=== PATIENT | female | born 1990 | race Caucasian/White ===

== ENCOUNTER → 2016-06-17 | Outpatient (CLI) | payer BC ==
[~2016-06-17] MED LIST: AMOX875T PO; CITA20TA9 PO; CRAN400C PO; HYDR-5688 PO; LACT1CAP6 PO; MULT-506 PO; TRAM-10 PO
[2016-06-17 14:30] LABS: BASO % 0.2 %; BASO ABS # 0.02 K/uL (0-0.2); COMPLETE YES; EOS % 0.5 %; HEMATOCRIT 38.1 % (37-47); IG% 0.2 %; LYMPH % 10.7 %; LYMPH ABS # 1.01 K/uL (1.2-3.4); MEAN CELL VOLUME 89.2 fL (80-100); MEAN CORPUSCULAR HEMOGLOBIN 30.4 pg (25-34); MEAN CORPUSCULAR HGB CONC 34.1 g/dl (32-36); MEAN PLATELET VOLUME 10.5 fL (7.4-10.4); MONO % 11.6 %; NEUT % 76.8 %; PLATELET COUNT 270 K/uL (130-400); RED BLOOD COUNT 4.27 M/uL (4.2-5.4)
[2016-06-17 14:33] LABS: ALT/SGPT 12 U/L (12-78); AST/SGOT 6 U/L (15-37); BLOOD UREA NITROGEN 14 mg/dl (7-18); CALCIUM 8.5 mg/dl (8.5-10.1); CARBON DIOXIDE 29 mmol/L (21-32); CHLORIDE 106 mmol/L (98-107); CREATININE 0.72 mg/dl (0.60-1.20); GLUCOSE 75 mg/dl (70-99); POTASSIUM 3.7 mmol/L (3.5-5.1); SODIUM 141 mmol/L (136-145)
[2016-06-17 14:36] LABS: ALB/GLOB RATIO 0.9 (0.9-2); ALKALINE PHOSPHATASE 52 U/L (45-117)
[2016-06-17 14:42] LABS: URINE APPEARANCE TURBID (CLEAR); URINE BILIRUBIN NEG (NEG); URINE COLOR DK YELLOW; URINE EPITHELIAL CELL AUTO 20-30 /lpf (0-5); URINE NITRITE NEG (NEG); URINE SPECIFIC GRAVITY 1.028 (1.000-1.030); UROBILINOGEN NEG (NEG)
[2016-06-17 14:45] LABS: MANUAL MICROSCOPIC REQUIRED? NO; REVIEW REQ? NO
[2016-06-17 14:58] LABS: ESTIMATED AVERAGE GLUCOSE 97 mg/dl; HA1C FLAG Normal (Normal)
== END | disposition home or self-care (01) ==
LOC: C.LABBC 11:33
PROVIDERS: ATTEND Internal Medicine Geriatric Medicine
DX: R10.9 Unspecified abdominal pain (principal); R42 Dizziness and giddiness; Z83.3 Family history of diabetes mellitus

== ENCOUNTER 2016-06-25 15:17 | Inpatient (IN) | payer BC ==
[~2016-06-25] VITALS: Ht 157.5 cm; Wt 51.3 kg
[~2016-06-25 15:17] MED LIST changes: -AMOX875T PO; -HYDR-5688 PO; -LACT1CAP6 PO; -MULT-506 PO; -TRAM-10 PO
[2016-06-25] MEDS ORDERED: SODIUM CHLORIDE 0.9% 1000ML 1,000 ML IV STA (16:18)
[2016-06-25 16:35] LABS: URINE APPEARANCE CLEAR (CLEAR); URINE BILIRUBIN NEG (NEG); URINE COLOR YELLOW; URINE NITRITE NEG (NEG); URINE SPECIFIC GRAVITY 1.004 (1.000-1.030); UROBILINOGEN NEG (NEG); ZZUR CULT IF INDIC CLEAN CATCH NO
[2016-06-25 16:41] LABS: MANUAL MICROSCOPIC REQUIRED? NO; REVIEW REQ? NO
[2016-06-25 16:47] LABS: BASO % 0.1 %; BASO ABS # 0.02 K/uL (0-0.2); COMPLETE YES; EOS % 0.3 %; HEMATOCRIT 35.2 % (37-47); IG% 0.2 %; LYMPH % 11.5 %; LYMPH ABS # 1.63 K/uL (1.2-3.4); MEAN CELL VOLUME 88.2 fL (80-100); MEAN CORPUSCULAR HEMOGLOBIN 30.1 pg (25-34); MEAN CORPUSCULAR HGB CONC 34.1 g/dl (32-36); MEAN PLATELET VOLUME 9.2 fL (7.4-10.4); MONO % 7.6 %; NEUT % 80.3 %; PLATELET COUNT 357 K/uL (130-400); RED BLOOD COUNT 3.99 M/uL (4.2-5.4); WHITE BLOOD COUNT 14.15 K/uL (4.8-10.8)
[2016-06-25 17:00] VITALS: BP 123/79; PULSE 79; TEMP 37.8; O2SAT 97
--- NOTE | 2016-06-25 17:13 | DIAGNOSTIC IMAGING REPORT ---
ABDOMEN AND PELVIS CT WITHOUT CONTRAST CT DOSE: 253.94 mGy.cm HISTORY: Right flank pain. Fever. TECHNIQUE: Multiaxial CT images of the abdomen and pelvis were performed without contrast. COMPARISON STUDY: None. FINDINGS: The lung bases are clear. No pneumoperitoneum. No pneumatosis. No fractures within the visualized osseous structures. The proximal portion of the appendix is normal and is seen in image [id number]. However, the tip the appendix is difficult to identify but appears to extend into an area of abnormal soft tissue/inflammatory change within the right lower quadrant. Therefore, these findings are concerning for acute appendicitis. Trace pelvic free fluid. No evidence for bowel obstruction. The unenhanced liver, gallbladder, pancreas, spleen, kidneys, and adrenal glands are unremarkable. No renal stones or hydronephrosis. The bladder is unremarkable. Overall, suboptimal evaluation for bowel pathology due to the lack of intravenous and oral contrast. IMPRESSION: 1. There is an area of abnormal soft tissue which favors inflammatory change/phlegmon within the right lower quadrant. The proximal portion of the appendix is normal. The tip the appendix is difficult to identify but may extend into this area. Therefore, these findings raise the possibility of acute appendicitis. Clinical correlation recommended. 2. No renal stones or hydronephrosis. 3. Overall, suboptimal evaluation for bowel pathology due to the lack of intravenous and oral contrast. 4. Trace pelvic free fluid. Electronically signed by: Salomon Lamas M.D. 06/25/2016 5:11 PM Dictated Date/Time: 06/25/2016 5:03 PM
[2016-06-25 17:20] LABS: BUN/CREATININE RATIO 11.3 (10-20); CALCIUM 8.6 mg/dl (8.5-10.1); CREATININE 0.7 mg/dl (0.60-1.20); POTASSIUM 3.3 mmol/L (3.5-5.1)
[2016-06-25 17:23] LABS: ALB/GLOB RATIO 0.7 (0.9-2); C-REACTIVE PROTEIN 14.7 mg/dl (0-0.29)
[2016-06-25] MEDS ORDERED: PIPERACILL/TAZOBAC IV 3.375 GM in DEXTROSE 5% 100ML 100 ML IV STA (17:54)
[2016-06-25] MEDS ORDERED: METRONIDAZOLE / NSS 500 MG in PREMIXED NSS 100 ML IV STA (17:54)
[2016-06-25] MEDS ORDERED: ONDANSETRON INJ 2 MG/ML 2 ML VIAL IV PRN (18:00)
[2016-06-25] MEDS ORDERED: PROMETHAZINE HCL INJ 25 MG in SODIUM CHLORIDE 0.9% 50ML 50 ML IV PRN (18:00)
[2016-06-25] MEDS ORDERED: HYDROmorphone INJ 0.5 MG/0.5 ML SYR IV PRN (18:00)
[2016-06-25] MEDS ORDERED: HYDROmorphone INJ 1 MG/ML SYR IV PRN (18:00)
--- NOTE | 2016-06-25 18:31 | HISTORY & PHYSICAL EXAMINATION ---
DATE OF ADMISSION: 06/25/2016 CHIEF COMPLAINT: Right flank pain. HISTORY OF PRESENT ILLNESS: The patient is a 25-year-old female who has been feeling somewhat poorly for a week with what she felt was a GI virus and was seen by her PCP, but this has somewhat worsened and she has developed right flank pain, presented to the Emergency Room with CT evidence of a right lower quadrant phlegmonous area which is most likely a contained ruptured appendix. Her white blood cell count is 14,000. Her temperature is 37.7, pulse 120. Her other history includes a history of having her wisdom teeth taken out. FAMILY AND SOCIAL HISTORY: Essentially noncontributory. REVIEW OF SYSTEMS: She does have fever. She has no chills, no cough, sputum production, shortness of breath, chest pain. She does have some right-sided abdominal pain, no nausea or vomiting, no joint pain, dysuria, weakness, fatigue. No rash or extremity swelling. PHYSICAL EXAMINATION: GENERAL: She appears to be mildly flushed in her face. She is responsive. She is awake. HEENT: Her sclerae are nonicteric. Her mucous membranes are dry. NECK: Supple. LUNGS: Clear. HEART: Shows tachycardia. ABDOMEN: Soft. She does have some mild tenderness to palpation in the right abdomen and right lower quadrant area. She has no diffuse peritoneal irritation evident. She does have normal bowel sounds. EXTREMITIES: Without rash or edema. IMAGING DATA: I did review her CAT scan. ASSESSMENT AND PLAN: A 25-year-old female with what appears to be a contained rupture of the appendix with phlegmonous mass. I do feel the best treatment in this situation would be intravenous antibiotics and initial bowel rest with gradual increase in her diet. PLAN: My plan would be to treat her with antibiotics for at least 2 weeks including outpatient. Then most likely perform an interval appendectomy in 6-8 weeks depending on her progress. My concerns at the present time are significant difficulty mobilizing this area with bowel involvement and potential for bowel resection. We will have the medical team see the patient and begin her urgently on IV antibiotics and IV fluids.
[2016-06-25 18:50] VITALS: BP 121/77; TEMP 37.7; Ht 157.5 cm; Wt 51.3 kg
--- NOTE | 2016-06-25 19:03 | Medical Consult ---
Consultation Date of Consultation: Jun 25, 2016. Attending Physician: Reason for Consultation: Medications management History of Present Illness This is a 25 y/o with no significant past medical history presented to the ED complaining of abdominal since Friday. Patient states that on Friday she developed right sided abdominal pain. She went to the PCP and told that she might have viral illness. The pain has increased since Friday, which brought her to the hospital. Describes the pain as aching, located mostly at RLQ, rates it as 5/10 and non radiating. Also complains of associated nausea. Denies any other complaints. In ED CT showed a right lower quadrant phlegmonous area which is most likely a contained ruptured appendix. She had elevated WBC and temp of 37.7. Past Medical/Surgical History None Family History Cancer FH: diabetes mellitus FH: hypertension Social History Smoking Status: Never Smoker Alcohol Use: none Drug Use: none Marital Status: in relationship Housing Status: lives with significant other Occupation Status: employed Allergies Coded Allergies: No Known Allergies (Unverified , 06/25/16) Current Inpatient Medications Current Inpatient Medications Medications (Trade) Dose Ordered Sig/Leandra Route Start Time Stop Time Status Last Admin Dose Admin Lactated Ringer's 1,000 ml @ 150 mls/hr Q6H40M IV 06/25/16 18:00 07/25/16 17:59 UNV Metronidazole 500 mg/Prmx 100 ml @ 100 mls/hr Q8 IV 06/25/16 18:00 07/05/16 17:59 UNV Piperacillin Sod/ Tazobactam Sod 3.375 gm/Dextrose 115 ml @ 28.75 mls/ hr Q8 IV 06/25/16 18:00 07/05/16 17:59 UNV Metronidazole 500 mg/Prmx 100 ml @ 100 mls/hr Q8 STAT IV 06/25/16 17:54 06/25/16 18:53 Piperacillin Sod/ Tazobactam Sod/ Dextrose (Zosyn Iv/D5 100ml) 115 ml @ 230 mls/hr ONE STAT IV 06/25/16 17:54 06/25/16 18:23 Hydromorphone HCl (Dilaudid Inj) 0.5 mg Q3H PRN IV 06/25/16 18:00 07/09/16 17:59 UNV Hydromorphone HCl (Dilaudid Inj) 1 mg Q3H PRN IV 06/25/16 18:00 07/09/16 17:59 UNV Heparin Sodium (Porcine) 5000 unit 5,000 unit Q12H SQ 06/26/16 08:00 07/26/16 07:59 UNV Promethazine HCl/ Sodium Chloride (Phenergan Inj/ Nss 50ml) 51 ml @ 204 mls/hr Q6H PRN IV 06/25/16 18:00 07/25/16 17:59 UNV Ondansetron HCl (Zofran Inj) 4 mg Q6H PRN IV 06/25/16 18:00 07/25/16 17:59 UNV Ketorolac Tromethamine (Toradol Inj) 30 mg Q6H IV. 06/25/16 18:00 06/30/16 17:59 UNV Review of Systems Constitutional: + fever, No chills, No weight loss Respiratory: No cough, No shortness of breath Cardiovascular: No chest pain, No edema Abdomen: + nausea, + pain (RLQ abdominal pain), No constipation, No diarrhea, No vomiting Musculoskeletal: No muscle pain Genitourinary - Female: No dysuria Neurologic: No weakness Endocrine: No fatigue Integumentary: No rash Physical Exam Date Time Temp Pulse Resp B/P Pulse Ox O2 Delivery O2 Flow Rate FiO2 06/25/16 17:20 123 18 124/70 100 Room Air 06/25/16 15:22 37.7 127 18 136/80 98 Room Air General Appearance: WD/WN, + mild distress Head: normocephalic, atraumatic Eyes: normal inspection, PERRL, EOMI Neck: supple, trachea midline Respiratory/Chest: chest non-tender, lungs clear, normal breath sounds, no respiratory distress, no accessory muscle use Cardiovascular: regular rate, rhythm, no edema, no murmur, + tachycardia Abdomen/GI: normal bowel sounds, soft, no pulsatile mass, + tenderness (on the RLQ) Extremities/Musculoskelatal: normal inspection, no calf tenderness, no pedal edema, non-tender Neurologic/Psych: alert, normal mood/affect, oriented x 3 Skin: normal color, warm/dry, no rash Laboratory Results Last 24 Hours Test 06/25/16 16:18 06/25/16 16:35 Urine Color YELLOW Urine Appearance CLEAR Urine pH 6.0 Urine Specific Harvey 1.004 Urine Protein NEG Urine Glucose (UA) NEG Urine Ketones NEG Urine Occult Blood 2+ Urine Nitrite NEG Urine Bilirubin NEG Urine Urobilinogen NEG Urine Leukocyte Esterase NEG Urine WBC (Auto) 0 /hpf Urine RBC (Auto) 0-4 /hpf Urine Hyaline Casts (Auto) 0 /lpf Urine Epithelial Cells (Auto) 5-10 /lpf Urine Bacteria (Auto) NEG Urine Test NEG White Blood Count 14.15 K/uL Red Blood Count 3.99 M/uL Hemoglobin 12.0 g/dL Hematocrit 35.2 % Mean Corpuscular Volume 88.2 fL Mean Corpuscular Hemoglobin 30.1 pg Mean Corpuscular Hemoglobin Concent 34.1 g/dl Platelet Count 357 K/uL Mean Platelet Volume 9.2 fL Neutrophils (%) (Auto) 80.3 % Lymphocytes (%) (Auto) 11.5 % Monocytes (%) (Auto) 7.6 % Eosinophils (%) (Auto) 0.3 % Basophils (%) (Auto) 0.1 % Neutrophils # (Auto) 11.35 K/uL Lymphocytes # (Auto) 1.63 K/uL Monocytes # (Auto) 1.08 K/uL Eosinophils # (Auto) 0.04 K/uL Basophils # (Auto) 0.02 K/uL RDW Standard Deviation 40.1 fL RDW Coefficient of Variation 12.4 % Immature Granulocyte % (Auto) 0.2 % Immature Granulocyte # (Auto) 0.03 K/uL Erythrocyte Sedimentation Rate 42 mm/hr Sodium Level 139 mmol/L Potassium Level 3.3 mmol/L Chloride Level 105 mmol/L Carbon Dioxide Level 25 mmol/L Anion Gap 9.0 mmol/L Blood Urea Nitrogen 8 mg/dl Creatinine 0.70 mg/dl Est Creatinine Clear Calc Drug Dose 97.2 ml/min Estimated GFR () 139.6 Estimated GFR (Non- 120.4 BUN/Creatinine Ratio 11.3 Random Glucose 89 mg/dl Calcium Level 8.6 mg/dl Total Bilirubin 0.3 mg/dl Aspartate Amino Transf (AST/SGOT) 9 U/L Alanine Aminotransferase (ALT/SGPT) 11 U/L Alkaline Phosphatase 65 U/L C-Reactive Protein 14.70 mg/dl Total Protein 7.5 gm/dl Albumin 3.1 gm/dl Globulin 4.4 gm/dl Albumin/Globulin Ratio 0.7 Lipase 90 U/L Monoscreen NEG Assessment & Plan This is a 25 y/o female presented to the RLQ pain and found to have ruptured appendix. Patient is under Dr. Shah's service. We are consulted for the medication management. In ED patient had temp of 37.7 and elevated WBC. 1. Ruptured appendix - CT of the showed an area of abnormal soft tissue which favors inflammatory change/phlegmon within the right lower quadrant. The proximal portion of the appendix is normal. The tip the appendix is difficult to identify but may extend into this area. Therefore, these findings raise the possibility of acute appendicitis. - For now Dr. Shah plan is to treat her with antibiotics for 2 weeks and precede with appendectomy in 6-8 wks. - Patient is currently on IV Flagyl and Zosyn - Continue with IVF, LR @150mls/hr - Will keep NPO for now and advance diet slowly DVT prophylaxis - Heparin I agree with Resident assessment and plan Agree with zosyn and flagyl Febrile and tachycardic COnt IVF as well Surgery per primary team once sepsis subsides
[2016-06-25] MEDS ORDERED: PIPERACILL/TAZOBAC CONSULT ACTIVE PRN (20:15)
[2016-06-25] MEDS ORDERED: POTASSIUM CHLORIDE 10 MEQ TABCR PO STA (20:39)
[2016-06-25] MEDS: KETOROLAC TROMETHAMINE 30 MG/ML VIAL IV. SCH (20:44)
--- NOTE | 2016-06-25 21:42 | Surgery Progress Note ---
Surgery Progress Note Date of Service Jun 25, 2016. Subjective pt awake, alert in room- seems to be comfortable low grd fever- HR coming down, 300cc UO Objective Vital Signs: Date Time Temp Pulse Resp B/P Pulse Ox O2 Delivery O2 Flow Rate FiO2 06/25/16 18:50 37.7 20 121/77 Room Air 06/25/16 18:50 Room Air 06/25/16 18:33 113 20 121/77 100 Room Air 06/25/16 17:20 123 18 124/70 100 Room Air 06/25/16 17:00 37.8 79 18 123/79 97 Room Air 06/25/16 15:22 37.7 127 18 136/80 98 Room Air General Appearance: no apparent distress Abdomen: non distended Laboratory Results: Results Past 24 Hours Test 06/25/16 16:18 06/25/16 16:35 Range/Units Urine Color YELLOW Urine Appearance CLEAR CLEAR Urine pH 6.0 4.5-7.5 Urine Specific Antonito 1.004 1.000-1.030 Urine Protein NEG NEG Urine Glucose (UA) NEG NEG Urine Ketones NEG NEG Urine Occult Blood 2+ NEG Urine Nitrite NEG NEG Urine Bilirubin NEG NEG Urine Urobilinogen NEG NEG Urine Leukocyte Esterase NEG NEG Urine WBC (Auto) 0 0-5 /hpf Urine RBC (Auto) 0-4 0-4 /hpf Urine Hyaline Casts (Auto) 0 0-5 /lpf Urine Epithelial Cells (Auto) 5-10 0-5 /lpf Urine Bacteria (Auto) NEG NEG Urine Test NEG NEG White Blood Count 14.15 4.8-10.8 K/uL Red Blood Count 3.99 4.2-5.4 M/uL Hemoglobin 12.0 12.0-16.0 g/dL Hematocrit 35.2 37-47 % Mean Corpuscular Volume 88.2 80-100 fL Mean Corpuscular Hemoglobin 30.1 25-34 pg Mean Corpuscular Hemoglobin Concent 34.1 32-36 g/dl Platelet Count 357 130-400 K/uL Mean Platelet Volume 9.2 7.4-10.4 fL Neutrophils (%) (Auto) 80.3 % Lymphocytes (%) (Auto) 11.5 % Monocytes (%) (Auto) 7.6 % Eosinophils (%) (Auto) 0.3 % Basophils (%) (Auto) 0.1 % Neutrophils # (Auto) 11.35 1.4-6.5 K/uL Lymphocytes # (Auto) 1.63 1.2-3.4 K/uL Monocytes # (Auto) 1.08 0.11-0.59 K/uL Eosinophils # (Auto) 0.04 0-0.5 K/uL Basophils # (Auto) 0.02 0-0.2 K/uL RDW Standard Deviation 40.1 36.4-46.3 fL RDW Coefficient of Variation 12.4 11.5-14.5 % Immature Granulocyte % (Auto) 0.2 % Immature Granulocyte # (Auto) 0.03 0.00-0.02 K/uL Erythrocyte Sedimentation Rate 42 0-21 mm/hr Sodium Level 139 136-145 mmol/L Potassium Level 3.3 3.5-5.1 mmol/L Chloride Level 105 98-107 mmol/L Carbon Dioxide Level 25 21-32 mmol/L Anion Gap 9.0 3-11 mmol/L Blood Urea Nitrogen 8 7-18 mg/dl Creatinine 0.70 0.60-1.20 mg/dl Est Creatinine Clear Calc Drug Dose 97.2 ml/min Estimated GFR () 139.6 Estimated GFR (Non- 120.4 BUN/Creatinine Ratio 11.3 10-20 Random Glucose 89 70-99 mg/dl Calcium Level 8.6 8.5-10.1 mg/dl Total Bilirubin 0.3 0.2-1 mg/dl Aspartate Amino Transf (AST/SGOT) 9 15-37 U/L Alanine Aminotransferase (ALT/SGPT) 11 12-78 U/L Alkaline Phosphatase 65 45-117 U/L C-Reactive Protein 14.70 0-0.29 mg/dl Total Protein 7.5 6.4-8.2 gm/dl Albumin 3.1 3.4-5.0 gm/dl Globulin 4.4 2.5-4.0 gm/dl Albumin/Globulin Ratio 0.7 0.9-2 Lipase 90 73-393 U/L Monoscreen NEG NEG Assessment & Plan 06/25/16- adm with phlegmonous appendicitis- nonoperative treatment for now with planned interval appendectomy . IV fluids and atbx
[2016-06-25 23:05] VITALS: BP 105/67; PULSE 81; TEMP 36.9; O2SAT 98
--- NOTE | 2016-06-25 23:08 | EMERGENCY ROOM VISIT NOTE ---
History First contact with patient: 16:06 Chief Complaint: URINARY SYMPTOMS Stated Complaint: UTI/KIDNEY INFECT. SX/PAIN IN LWR/UPR BACK Nursing Triage Summary: back pain since friday night, fever, chills, night sweats, increased urinary frequency History of Present Illness The patient is a 25 year old female who presents to the Emergency Room with complaints of lower back pain, right flank pain, fevers, chills and nausea. The patient reports that she developed weakness, nausea, fevers and decreased appetite over a week ago. She was seen by her PCP on 06/17/16, and diagnosed with a viral infection. She does report having lab work performed. The patient reports that she never really improved last week. She did have some mild right-sided abdominal discomfort at that time. At that time, she denied any urinary symptoms or diarrhea. Patient then started to report increased urinary frequency approximately 48 hours ago with worsening fevers and chills. The patient reports that her right flank pain is intermittent in nature. She denies any prior history of kidney stones, ovarian cysts or abdominal surgery. The patient is currently menstruating, but reports that the pain is different than her usual dysmenorrhea. The patient denies . She currently rates her discomfort a 6 out of 10. Review of Systems HEENT: Denies dizziness, visual problems, hearing loss, tinnitus. Denies difficulty swallowing or oral lesions. PULMONARY: Denies cough, shortness of breath, sputum production or hemoptysis. CARDIOVASCULAR: Denies chest pain, palpitations, dyspnea on exertion, orthopnea or peripheral edema. GASTROINTESTINAL: Denies diarrhea or constipation, otherwise see history of present illness. GENITOURINARY: Denies dysuria, but does admit to increased frequency and urgency. NEUROLOGIC: Denies history of epilepsy, CVA, TIA or chronic headaches. MUSCULOSKELETAL: Denies history of joint tenderness/swelling. SKIN: Denies rashes or lesions. PSYCHIATRIC: Denies history of depression or mental illness. ENDOCRINE: Denies history of diabetes or thyroid disorders. Past Medical/Surgical History Medical Problems: (1) Appendicitis (2) Raynaud disease Family History Cancer FH: diabetes mellitus FH: hypertension Social History Smoking Status: Never Smoker Alcohol Use: none Marital Status: single, in relationship Housing Status: lives with significant other Occupation Status: employed Current/Historical Medications Scheduled Citalopram Hydrobromide (Celexa), 20 MG PO DAILY Allergies Coded Allergies: No Known Allergies (Unverified , 06/25/16) Physical Exam Vital Signs Date Time Temp Pulse Resp B/P Pulse Ox O2 Delivery O2 Flow Rate FiO2 06/25/16 17:20 123 18 124/70 100 Room Air 06/25/16 17:00 37.8 79 18 123/79 97 Room Air 06/25/16 15:22 37.7 127 18 136/80 98 Room Air Physical Exam CONSTITUTIONAL: Healthy and well nourished. Alert and oriented X 3 with positive affect. Patient appears in moderate discomfort from pain. HEENT: Normocephalic, atraumatic. Pupils equal, round and reactive. There is no icterus or conjunctival injection/pallor. OROPHARYNX: Mucous membranes are dry. No tonsillar hypertrophy or exudates. NECK: Full active range of motion without discomfort. No nuchal rigidity. LYMPHATICS: No adenopathy noted. RESPIRATORY: Clear to auscultation bilaterally with no wheezing, crackles, rhonchi or stridor. CARDIOVASCULAR: Regular rate and rhythm with no murmurs, rubs or gallops. GASTROINTESTINAL: Bowel sounds present in all quadrants. Patient has minimal right lower quadrant tenderness to palpation. Negative Rovsing sign. Negative heel tap. Negative psoas/obturator sign. Negative CVA tenderness. No abdominal rigidity, guarding or rebound. MUSCULOSKELETAL: Full range of motion of all joints without discomfort. INTEGUMENTARY: No rash or other significant dermatologic conditions noted. HEMATOLOGIC: No ecchymosis or petechiae noted. NEUROLOGIC: Cranial nerves II-XII grossly intact. No focal neurologic deficits noted. Medical Decision & Procedures ER Provider Diagnostic Interpretation: Noncontrast CT of the abdomen and pelvis shows a possible phlegmon process within the right lower quadrant. No renal or ureteral calculi are noted. Radiologist report is as follows: ABDOMEN AND PELVIS CT WITHOUT CONTRAST CT DOSE: 253.94 mGy.cm HISTORY: Right flank pain. Fever. TECHNIQUE: Multiaxial CT images of the abdomen and pelvis were performed without contrast. COMPARISON STUDY: None. FINDINGS: The lung bases are clear. No pneumoperitoneum. No pneumatosis. No fractures within the visualized osseous structures. The proximal portion of the appendix is normal and is seen in image [id number]. However, the tip the appendix is difficult to identify but appears to extend into an area of abnormal soft tissue/inflammatory change within the right lower quadrant. Therefore, these findings are concerning for acute appendicitis. Trace pelvic free fluid. No evidence for bowel obstruction. The unenhanced liver, gallbladder, pancreas, spleen, kidneys, and adrenal glands are unremarkable. No renal stones or hydronephrosis. The bladder is unremarkable. Overall, suboptimal evaluation for bowel pathology due to the lack of intravenous and oral contrast. IMPRESSION: 1. There is an area of abnormal soft tissue which favors inflammatory change/phlegmon within the right lower quadrant. The proximal portion of the appendix is normal. The tip the appendix is difficult to identify but may extend into this area. Therefore, these findings raise the possibility of acute appendicitis. Clinical correlation recommended. 2. No renal stones or hydronephrosis. 3. Overall, suboptimal evaluation for bowel pathology due to the lack of intravenous and oral contrast. 4. Trace pelvic free fluid. Laboratory Results 06/25/16 16:35 Red Blood Count 3.99, Mean Corpuscular Volume 88.2, Mean Corpuscular Hemoglobin 30.1, Mean Corpuscular Hemoglobin Concent 34.1, Mean Platelet Volume 9.2, Neutrophils (%) (Auto) 80.3, Lymphocytes (%) (Auto) 11.5, Monocytes (%) (Auto) 7.6, Eosinophils (%) (Auto) 0.3, Basophils (%) (Auto) 0.1, Neutrophils # (Auto) 11.35, Lymphocytes # (Auto) 1.63, Monocytes # (Auto) 1.08, Eosinophils # (Auto) 0.04, Basophils # (Auto) 0.02 06/25/16 16:35 Test 06/25/16 16:18 06/25/16 16:35 Urine Color YELLOW Urine Appearance CLEAR (CLEAR) Urine pH 6.0 (4.5-7.5) Urine Specific [place] 1.004 (1.000-1.030) Urine Protein NEG (NEG) Urine Glucose (UA) NEG (NEG) Urine Ketones NEG (NEG) Urine Occult Blood 2+ (NEG) Urine Nitrite NEG (NEG) Urine Bilirubin NEG (NEG) Urine Urobilinogen NEG (NEG) Urine Leukocyte Esterase NEG (NEG) Urine WBC (Auto) 0 /hpf (0-5) Urine RBC (Auto) 0-4 /hpf (0-4) Urine Hyaline Casts (Auto) 0 /lpf (0-5) Urine Epithelial Cells (Auto) 5-10 /lpf (0-5) Urine Bacteria (Auto) NEG (NEG) Urine Test NEG (NEG) White Blood Count 14.15 K/uL (4.8-10.8) Red Blood Count 3.99 M/uL (4.2-5.4) Hemoglobin 12.0 g/dL (12.0-16.0) Hematocrit 35.2 % (37-47) Mean Corpuscular Volume 88.2 fL (80-100) Mean Corpuscular Hemoglobin 30.1 pg (25-34) Mean Corpuscular Hemoglobin Concent 34.1 g/dl (32-36) Platelet Count 357 K/uL (130-400) Mean Platelet Volume 9.2 fL (7.4-10.4) Neutrophils (%) (Auto) 80.3 % Lymphocytes (%) (Auto) 11.5 % Monocytes (%) (Auto) 7.6 % Eosinophils (%) (Auto) 0.3 % Basophils (%) (Auto) 0.1 % Neutrophils # (Auto) 11.35 K/uL (1.4-6.5) Lymphocytes # (Auto) 1.63 K/uL (1.2-3.4) Monocytes # (Auto) 1.08 K/uL (0.11-0.59) Eosinophils # (Auto) 0.04 K/uL (0-0.5) Basophils # (Auto) 0.02 K/uL (0-0.2) RDW Standard Deviation 40.1 fL (36.4-46.3) RDW Coefficient of Variation 12.4 % (11.5-14.5) Immature Granulocyte % (Auto) 0.2 % Immature Granulocyte # (Auto) 0.03 K/uL (0.00-0.02) Erythrocyte Sedimentation Rate 42 mm/hr (0-21) Anion Gap 9.0 mmol/L (3-11) Est Creatinine Clear Calc Drug Dose 97.2 ml/min Estimated GFR () 139.6 Estimated GFR (Non- 120.4 BUN/Creatinine Ratio 11.3 (10-20) Calcium Level 8.6 mg/dl (8.5-10.1) Total Bilirubin 0.3 mg/dl (0.2-1) Aspartate Amino Transf (AST/SGOT) 9 U/L (15-37) Alanine Aminotransferase (ALT/SGPT) 11 U/L (12-78) Alkaline Phosphatase 65 U/L (45-117) C-Reactive Protein 14.70 mg/dl (0-0.29) Total Protein 7.5 gm/dl (6.4-8.2) Albumin 3.1 gm/dl (3.4-5.0) Globulin 4.4 gm/dl (2.5-4.0) Albumin/Globulin Ratio 0.7 (0.9-2) Lipase 90 U/L (73-393) Monoscreen NEG (NEG) The above labs were reviewed. Patient has a leukocytosis with left shift and bandemia. Urinalysis shows hematuria, likely secondary to menses. There is no signs of infection in the urine. Real screen and urine are negative. C-reactive protein and sedimentation rate are elevated as well. LFTs and lipase are normal. Medications Administered Medications (Trade) Dose Ordered Sig/Leandra Route Start Time Stop Time Status Last Admin Dose Admin Sodium Chloride 1,000 ml @ 999 mls/hr Q1H1M STAT IV 06/25/16 16:18 06/25/16 17:18 DC 06/25/16 16:39 999 MLS/HR Metronidazole 500 mg/Prmx 100 ml @ 100 mls/hr Q8 STAT IV 06/25/16 17:54 06/25/16 18:53 DC 06/25/16 19:05 100 MLS/HR Piperacillin Sod/ Tazobactam Sod/ Dextrose (Zosyn Iv/D5 100ml) 115 ml @ 230 mls/hr ONE STAT IV 06/25/16 17:54 06/25/16 18:23 DC 06/25/16 18:32 230 MLS/HR Procedure 1. IV hydration: The patient received a liter normal saline bolus 2. IV medications: ED Course Patient history and physical exam were performed. Nurse's notes were reviewed. The patient is febrile with a temperature of 37.7C, and heart rate of 127. She is normotensive. I also reviewed portion of prior medical records, including review of labs from 06/17/16. Urine cultures were ordered, however more than 3 bacteria were isolated, likely secondary to contamination. IV access was established, and labs were drawn. The patient was hydrated with a liter normal saline. She initially refused any analgesics or antiemetics. Review of labs shows a leukocytosis with elevated sedimentation rate and CRP. Urinalysis shows hematuria without evidence for infection. LFTs and lipase were normal. CRP and sedimentation rate are elevated, also suggestive of infection. was negative. Noncontrast CT of the abdomen and pelvis showed a phlegmon formation within the right lower quadrant, concerning for appendicitis. There was no evidence for ureteral calculi or perinephritic stranding. The case was further discussed with Dr. Hernández, ED attending physician, who suggested consultation with general surgery. The case was then further discussed with Dr. Shah who came to the emergency department to evaluate the patient. He suspects that the patient perforated the appendix which is currently walled off. Plan is for admission and IV antibiotics with hopefully interval appendectomy in 6-8 weeks pending progress. Please see his dictation for further treatment and final disposition. Medical Decision Workup today is consistent with an perforated appendicitis as currently walled off with a phlegmon formation. Her urinalysis is not suggestive of UTI, and she also has no CVA tenderness to suggest pyelonephritis. I also do not suspect ovarian cyst or torsion. She denies any chest or pulmonary symptoms to suggest cardiopulmonary etiology such as myocardial infarction, pulmonary embolus, pneumonia or pneumothorax. Laboratory studies also are not suggestive of pancreatitis, hepatitis or cholecystitis. The patient's physical exam is rather benign without classic findings that one would expect with acute appendicitis. Impression Primary Impression: Appendicitis with perforation Departure Information Referrals Lencho Cornell D.O.Int.Med. (PCP) Patient Instructions My [facility]
[2016-06-25] MEDS: LACTATED RINGER'S 1000ML 1,000 ML IV SCH (23:59)
[2016-06-26] MEDS: PIPERACILL/TAZOBAC IV 3.375 GM in DEXTROSE 5% 100ML 100 ML IV SCH ×3 (00:16→15:49)
[2016-06-26] MEDS: KETOROLAC TROMETHAMINE 30 MG/ML VIAL IV. SCH ×4 (03:36→20:55)
[2016-06-26] MEDS: LACTATED RINGER'S 1000ML 1,000 ML IV SCH ×3 (03:37→18:02)
[2016-06-26] MEDS: METRONIDAZOLE / NSS 500 MG in PREMIXED NSS 100 ML IV SCH ×3 (03:52→20:54)
[2016-06-26 05:23] LABS: HEMATOCRIT 30.1 % (37-47); MEAN CELL VOLUME 87.2 fL (80-100); MEAN CORPUSCULAR HEMOGLOBIN 29.6 pg (25-34); MEAN CORPUSCULAR HGB CONC 33.9 g/dl (32-36); MEAN PLATELET VOLUME 8.8 fL (7.4-10.4); PLATELET COUNT 293 K/uL (130-400); RED BLOOD COUNT 3.45 M/uL (4.2-5.4); WHITE BLOOD COUNT 12.06 K/uL (4.8-10.8)
--- NOTE | 2016-06-26 05:47 | Surgery Progress Note ---
Surgery Progress Note Date of Service Jun 26, 2016. Subjective No nausea, No vomiting awake, alert- no pain med except toradol, feels better fair urine output Objective Vital Signs: Date Time Temp Pulse Resp B/P Pulse Ox O2 Delivery O2 Flow Rate FiO2 06/25/16 23:20 Room Air 06/25/16 23:05 36.9 81 18 105/67 98 Room Air 06/25/16 18:50 37.7 20 121/77 Room Air 06/25/16 18:50 Room Air 06/25/16 18:33 113 20 121/77 100 Room Air 06/25/16 17:20 123 18 124/70 100 Room Air 06/25/16 17:00 37.8 79 18 123/79 97 Room Air 06/25/16 15:22 37.7 127 18 136/80 98 Room Air General Appearance: no apparent distress Respiratory/Chest: no respiratory distress Abdomen: soft (minimal tenderness, isolated to Rt side) Laboratory Results: Results Past 24 Hours Test 06/25/16 16:18 06/25/16 16:35 06/26/16 05:09 Range/Units Urine Color YELLOW Urine Appearance CLEAR CLEAR Urine pH 6.0 4.5-7.5 Urine Specific [place] 1.004 1.000-1.030 Urine Protein NEG NEG Urine Glucose (UA) NEG NEG Urine Ketones NEG NEG Urine Occult Blood 2+ NEG Urine Nitrite NEG NEG Urine Bilirubin NEG NEG Urine Urobilinogen NEG NEG Urine Leukocyte Esterase NEG NEG Urine WBC (Auto) 0 0-5 /hpf Urine RBC (Auto) 0-4 0-4 /hpf Urine Hyaline Casts (Auto) 0 0-5 /lpf Urine Epithelial Cells (Auto) 5-10 0-5 /lpf Urine Bacteria (Auto) NEG NEG Urine Test NEG NEG White Blood Count 14.15 12.06 4.8-10.8 K/uL Red Blood Count 3.99 3.45 4.2-5.4 M/uL Hemoglobin 12.0 10.2 12.0-16.0 g/dL Hematocrit 35.2 30.1 37-47 % Mean Corpuscular Volume 88.2 87.2 80-100 fL Mean Corpuscular Hemoglobin 30.1 29.6 25-34 pg Mean Corpuscular Hemoglobin Concent 34.1 33.9 32-36 g/dl Platelet Count 357 293 130-400 K/uL Mean Platelet Volume 9.2 8.8 7.4-10.4 fL Neutrophils (%) (Auto) 80.3 % Lymphocytes (%) (Auto) 11.5 % Monocytes (%) (Auto) 7.6 % Eosinophils (%) (Auto) 0.3 % Basophils (%) (Auto) 0.1 % Neutrophils # (Auto) 11.35 1.4-6.5 K/uL Lymphocytes # (Auto) 1.63 1.2-3.4 K/uL Monocytes # (Auto) 1.08 0.11-0.59 K/uL Eosinophils # (Auto) 0.04 0-0.5 K/uL Basophils # (Auto) 0.02 0-0.2 K/uL RDW Standard Deviation 40.1 40.4 36.4-46.3 fL RDW Coefficient of Variation 12.4 12.5 11.5-14.5 % Immature Granulocyte % (Auto) 0.2 % Immature Granulocyte # (Auto) 0.03 0.00-0.02 K/uL Erythrocyte Sedimentation Rate 42 0-21 mm/hr Sodium Level 139 136-145 mmol/L Potassium Level 3.3 3.5-5.1 mmol/L Chloride Level 105 98-107 mmol/L Carbon Dioxide Level 25 21-32 mmol/L Anion Gap 9.0 3-11 mmol/L Blood Urea Nitrogen 8 7-18 mg/dl Creatinine 0.70 0.60-1.20 mg/dl Est Creatinine Clear Calc Drug Dose 97.2 ml/min Estimated GFR () 139.6 Estimated GFR (Non- 120.4 BUN/Creatinine Ratio 11.3 10-20 Random Glucose 89 70-99 mg/dl Calcium Level 8.6 8.5-10.1 mg/dl Total Bilirubin 0.3 0.2-1 mg/dl Aspartate Amino Transf (AST/SGOT) 9 15-37 U/L Alanine Aminotransferase (ALT/SGPT) 11 12-78 U/L Alkaline Phosphatase 65 45-117 U/L C-Reactive Protein 14.70 0-0.29 mg/dl Total Protein 7.5 6.4-8.2 gm/dl Albumin 3.1 3.4-5.0 gm/dl Globulin 4.4 2.5-4.0 gm/dl Albumin/Globulin Ratio 0.7 0.9-2 Lipase 90 73-393 U/L Monoscreen NEG NEG Assessment & Plan 06/26/16- vital signs improved- afeb, HR normal- cont IV fluids, atbx will give clear liquids, ambulate, check labs 06/25/16- adm with phlegmonous appendicitis- nonoperative treatment for now with planned interval appendectomy . IV fluids and atbx 06/25/16- adm with phlegmonous appendicitis- nonoperative treatment for now with planned interval appendectomy . IV fluids and atbx
[2016-06-26 05:59] LABS: BLOOD UREA NITROGEN 6 mg/dl (7-18); BUN/CREATININE RATIO 11.4 (10-20); CALCIUM 7.9 mg/dl (8.5-10.1); CARBON DIOXIDE 23 mmol/L (21-32); CHLORIDE 111 mmol/L (98-107); CREATININE 0.51 mg/dl (0.60-1.20); GLUCOSE 87 mg/dl (70-99); PHOSPHORUS 2.5 mg/dl (2.5-4.9); POTASSIUM 3.8 mmol/L (3.5-5.1); SODIUM 144 mmol/L (136-145)
[2016-06-26 08:09] VITALS: BP 100/63; PULSE 91; TEMP 36.4; O2SAT 98
[2016-06-26] MEDS: HEPARIN SOD 5000 UNIT/0.5 ML CARP SQ SCH ×2 (08:35→20:55)
--- NOTE | 2016-06-26 14:51 | Progress Note ---
Subjective Date of Service: Jun 26, 2016. (Rebeca Bond PA-C) Subjective Pt evaluation today including: conversation w/ patient, physical exam, chart review, lab review, review of studies, review of inpatient medication list Patient seen and evaluated. Afebrile overnight. She is reporting adequate control of her pain at this time States that she feels at her baseline. Does report poor sleep overnight. Patient is getting ready to ambulate in the hallways. She denies fever/chills, abdominal pain, nausea/vomiting, diarrhea/constipation (Rebeca Bond PA-C) Problem List Medical Problems: (1) Appendicitis with perforation Status: Acute (Rebeca Bond PA-C) Review of Systems Constitutional: No chills, No fever Respiratory: No shortness of breath Cardiac: No chest pain Abdomen: No constipation, No diarrhea, No nausea, No pain, No vomiting Musculoskeletal: No calf pain, No swelling Female : No dysuria Heme: No abnormal bleeding/bruising Skin: No rash (Rebeca Bond PA-C) Medications Current Inpatient Medications Medications (Trade) Dose Ordered Sig/Leandra Route Start Time Stop Time Status Last Admin Dose Admin Lactated Ringer's 1,000 ml @ 125 mls/hr Q8H IV 06/25/16 20:00 07/25/16 19:59 06/26/16 10:50 125 MLS/HR Metronidazole 500 mg/Prmx 100 ml @ 100 mls/hr Q8H IV 06/26/16 04:00 07/05/16 19:59 06/26/16 12:25 100 MLS/HR Piperacillin Sod/ Tazobactam Sod/ Dextrose (Zosyn Iv/D5 100ml) 115 ml @ 28.75 mls/ hr Q8H IV 06/26/16 00:00 07/06/16 00:00 06/26/16 08:31 28.75 MLS/HR Hydromorphone HCl (Dilaudid Inj) 0.5 mg Q3H PRN IV 06/25/16 18:00 07/09/16 17:59 Hydromorphone HCl (Dilaudid Inj) 1 mg Q3H PRN IV 06/25/16 18:00 07/09/16 17:59 Heparin Sodium (Porcine) 5000 unit 5,000 unit Q12H SQ 06/26/16 08:00 07/26/16 07:59 Promethazine HCl/ Sodium Chloride (Phenergan Inj/ Nss 50ml) 51 ml @ 204 mls/hr Q6H PRN IV 06/25/16 18:00 07/25/16 17:59 Ondansetron HCl (Zofran Inj) 4 mg Q6H PRN IV 06/25/16 18:00 07/25/16 17:59 Ketorolac Tromethamine (Toradol Inj) 30 mg Q6H IV. 06/25/16 21:00 06/27/16 15:01 06/26/16 14:27 30 MG Piperacillin Sod/ Tazobactam Sod (Consult) 1 ea UD PRN N/A 06/25/16 20:15 07/25/16 20:14 Citalopram Hydrobromide (celeXA TAB) 20 mg HS PO 06/26/16 21:00 07/26/16 20:59 (Rebeca Bond PA-C) Objective Vital Signs Date Time Temp Pulse Resp B/P Pulse Ox O2 Delivery O2 Flow Rate FiO2 06/26/16 08:09 36.4 91 16 100/63 98 Room Air 06/26/16 08:00 Room Air 06/25/16 23:20 Room Air 06/25/16 23:05 36.9 81 18 105/67 98 Room Air 06/25/16 18:50 37.7 20 121/77 Room Air 06/25/16 18:50 Room Air 06/25/16 18:33 113 20 121/77 100 Room Air 06/25/16 17:20 123 18 124/70 100 Room Air 06/25/16 17:00 37.8 79 18 123/79 97 Room Air 06/25/16 15:22 37.7 127 18 136/80 98 Room Air (Rebeca Bond PA-C) Physical Exam General Appearance: WD/WN, no apparent distress Eyes: sclerae normal ENT: hearing grossly normal Neck: supple, no JVD, trachea midline Respiratory/Chest: lungs clear, normal breath sounds, no respiratory distress, no accessory muscle use Cardiovascular: regular rate, rhythm, no gallop, no murmur Abdomen: normal bowel sounds, non tender, soft Extremities: non-tender, no pedal edema Neurologic/Psychiatric: alert, oriented x 3 Skin: normal color, warm/dry (Rebeca Bond, MALIKA) Laboratory Results Last 24 Hours Test 06/25/16 16:18 06/25/16 16:35 06/26/16 05:09 Urine Color YELLOW Urine Appearance CLEAR Urine pH 6.0 Urine Specific [place] 1.004 Urine Protein NEG Urine Glucose (UA) NEG Urine Ketones NEG Urine Occult Blood 2+ Urine Nitrite NEG Urine Bilirubin NEG Urine Urobilinogen NEG Urine Leukocyte Esterase NEG Urine WBC (Auto) 0 /hpf Urine RBC (Auto) 0-4 /hpf Urine Hyaline Casts (Auto) 0 /lpf Urine Epithelial Cells (Auto) 5-10 /lpf Urine Bacteria (Auto) NEG Urine Test NEG White Blood Count 14.15 K/uL 12.06 K/uL Red Blood Count 3.99 M/uL 3.45 M/uL Hemoglobin 12.0 g/dL 10.2 g/dL Hematocrit 35.2 % 30.1 % Mean Corpuscular Volume 88.2 fL 87.2 fL Mean Corpuscular Hemoglobin 30.1 pg 29.6 pg Mean Corpuscular Hemoglobin Concent 34.1 g/dl 33.9 g/dl Platelet Count 357 K/uL 293 K/uL Mean Platelet Volume 9.2 fL 8.8 fL Neutrophils (%) (Auto) 80.3 % Lymphocytes (%) (Auto) 11.5 % Monocytes (%) (Auto) 7.6 % Eosinophils (%) (Auto) 0.3 % Basophils (%) (Auto) 0.1 % Neutrophils # (Auto) 11.35 K/uL Lymphocytes # (Auto) 1.63 K/uL Monocytes # (Auto) 1.08 K/uL Eosinophils # (Auto) 0.04 K/uL Basophils # (Auto) 0.02 K/uL RDW Standard Deviation 40.1 fL 40.4 fL RDW Coefficient of Variation 12.4 % 12.5 % Immature Granulocyte % (Auto) 0.2 % Immature Granulocyte # (Auto) 0.03 K/uL Erythrocyte Sedimentation Rate 42 mm/hr Sodium Level 139 mmol/L 144 mmol/L Potassium Level 3.3 mmol/L 3.8 mmol/L Chloride Level 105 mmol/L 111 mmol/L Carbon Dioxide Level 25 mmol/L 23 mmol/L Anion Gap 9.0 mmol/L 10.0 mmol/L Blood Urea Nitrogen 8 mg/dl 6 mg/dl Creatinine 0.70 mg/dl 0.51 mg/dl Est Creatinine Clear Calc Drug Dose 97.2 ml/min 133.4 ml/min Estimated GFR () 139.6 > 150.0 Estimated GFR (Non- 120.4 133.6 BUN/Creatinine Ratio 11.3 11.4 Random Glucose 89 mg/dl 87 mg/dl Calcium Level 8.6 mg/dl 7.9 mg/dl Total Bilirubin 0.3 mg/dl Aspartate Amino Transf (AST/SGOT) 9 U/L Alanine Aminotransferase (ALT/SGPT) 11 U/L Alkaline Phosphatase 65 U/L C-Reactive Protein 14.70 mg/dl Total Protein 7.5 gm/dl Albumin 3.1 gm/dl Globulin 4.4 gm/dl Albumin/Globulin Ratio 0.7 Lipase 90 U/L Monoscreen NEG Phosphorus Level 2.5 mg/dl Magnesium Level 2.0 mg/dl (Rebeca Bond PA-C) Assessment and Plan Ms. Lee is a 25 y/o female with PMHx Anxiety/Depression who presents with RLQ abdominal pain. CT significant for what appears to be a contained ruptured appendix. Sepsis 2/2 Acute Appendicitis with Contained Perforation: - Dr. Shah as primary service -- Plan to treat with 2 weeks antibiotics with appendectomy in 6-8 weeks - Advance diet as tolerated - Lactated Ringer's 125 mL/hr - Flagyl 500 mg IV Q8H and Zosyn per pharmacy dosing - Toradol 30 mg IV Q6H and Dilaudid 0.5-1 mg Q3H PRN Hypokalemia: RESOLVED - Trend with BMP Anxiety/Depression: - Celexa 20 mg HS DVT Prophylaxis: - Ambulation - Heparin 5000 units BID Code Status: FULL RESUSCITATION Disposition: Return home when medically stable per primary Continued [facility] stay due to: multiple IV medications needed Discharge planning: home (Rebeca Bond PA-C) I personally evaluated this patient and performed a physical exam. I reviewed the orders. I read this note completed by Rebeca Bond PA-C and agree with the contents in entirety. I agree with the antibiotic choices. I could argue that if patient is without fever or signs of peritonitis over the next 36-48 hours that she could be discharged on oral Augmentin and Flagyl or oral Avelox. Then have her watch closely for fever, N/V, and abdominal pain until surgery date. (Dexter Cuenca, DO)
[2016-06-26 15:15] VITALS: BP 106/71; PULSE 90; TEMP 36.7; O2SAT 99
[2016-06-26] MEDS: CITALOPRAM 20 MG TAB PO SCH (20:56)
[2016-06-26 23:00] VITALS: BP 104/57; PULSE 84; TEMP 37; O2SAT 97
[2016-06-27] MEDS: PIPERACILL/TAZOBAC IV 3.375 GM in DEXTROSE 5% 100ML 100 ML IV SCH ×3 (00:17→15:33)
[2016-06-27] MEDS: KETOROLAC TROMETHAMINE 30 MG/ML VIAL IV. SCH ×3 (03:06→15:29)
[2016-06-27] MEDS: LACTATED RINGER'S 1000ML 1,000 ML IV SCH ×4 (03:07→18:48)
[2016-06-27] MEDS: METRONIDAZOLE / NSS 500 MG in PREMIXED NSS 100 ML IV SCH ×2 (04:29→12:05)
--- NOTE | 2016-06-27 06:48 | Surgery Progress Note ---
Surgery Progress Note Date of Service Jun 27, 2016. Subjective afeb, awake, alert- feeling better- walking in hallway hungry Objective Vital Signs: Date Time Temp Pulse Resp B/P Pulse Ox O2 Delivery O2 Flow Rate FiO2 06/27/16 00:25 Room Air 06/26/16 23:00 37.0 84 16 104/57 97 Room Air 06/26/16 15:50 Room Air 06/26/16 15:15 36.7 90 18 106/71 99 Room Air 06/26/16 08:09 36.4 91 16 100/63 98 Room Air 06/26/16 08:00 Room Air General Appearance: no apparent distress Respiratory/Chest: no respiratory distress Cardiovascular: regular rate, rhythm Abdomen: normal bowel sounds (minimal tenderness), soft Laboratory Results: Results Past 24 Hours Test 06/27/16 04:44 Range/Units Assessment & Plan 06/27/16- overall stable on IV atbx and clear liquids- abd is soft with normal bowel sounds- will adv to full liquids- cont IV atbx at least 2 more days , then to po Augmentin at some point 06/26/16- vital signs improved- afeb, HR normal- cont IV fluids, atbx will give clear liquids, ambulate, check labs 06/25/16- adm with phlegmonous appendicitis- nonoperative treatment for now with planned interval appendectomy . IV fluids and atbx 06/26/16- vital signs improved- afeb, HR normal- cont IV fluids, atbx will give clear liquids, ambulate, check labs 06/25/16- adm with phlegmonous appendicitis- nonoperative treatment for now with planned interval appendectomy . IV fluids and atbx
[2016-06-27 07:14] VITALS: BP 98/64; PULSE 83; TEMP 36.7; O2SAT 98
[2016-06-27] MEDS: HEPARIN SOD 5000 UNIT/0.5 ML CARP SQ SCH ×2 (07:21→19:32)
[2016-06-27 07:27] LABS: HEMATOCRIT 30.4 % (37-47); MEAN CELL VOLUME 89.1 fL (80-100); MEAN CORPUSCULAR HEMOGLOBIN 29.3 pg (25-34); MEAN CORPUSCULAR HGB CONC 32.9 g/dl (32-36); MEAN PLATELET VOLUME 9.6 fL (7.4-10.4); PLATELET COUNT 327 K/uL (130-400); RED BLOOD COUNT 3.41 M/uL (4.2-5.4); WHITE BLOOD COUNT 9.43 K/uL (4.8-10.8)
[2016-06-27 08:03] LABS: BLOOD UREA NITROGEN 3 mg/dl (7-18); BUN/CREATININE RATIO 6.6 (10-20); CALCIUM 7.9 mg/dl (8.5-10.1); CARBON DIOXIDE 27 mmol/L (21-32); CHLORIDE 110 mmol/L (98-107); CREATININE 0.51 mg/dl (0.60-1.20); GLUCOSE 91 mg/dl (70-99); MAGNESIUM 1.9 mg/dl (1.8-2.4); POTASSIUM 3.8 mmol/L (3.5-5.1); SODIUM 145 mmol/L (136-145)
[2016-06-27] MEDS ORDERED: CITALOPRAM 20 MG TAB PO SCH (09:00)
--- NOTE | 2016-06-27 10:15 | Progress Note ---
Subjective Date of Service: Jun 27, 2016. (Rebeca Bond PA-C) Subjective Pt evaluation today including: conversation w/ patient, physical exam, chart review, lab review, review of inpatient medication list Patient seen and evaluated. No acute events overnight. Patient denies abdominal pain. She is tolerating a clear liquid diet. She denies fever/chills. She has been afebrile greater than 24 hours. Patient verbalizes no new complaints. (Rebeca Bond PA-C) Problem List Medical Problems: (1) Appendicitis with perforation Status: Acute (Rebeca Bond PA-C) Review of Systems Constitutional: No chills, No fever Respiratory: No cough, No shortness of breath Cardiac: No chest pain Abdomen: No constipation, No diarrhea, No nausea, No pain, No vomiting Musculoskeletal: No calf pain, No swelling Female : No dysuria Heme: No abnormal bleeding/bruising Skin: No new/changing skin lesions, No rash (Rebeca Bond PA-C) Medications Current Inpatient Medications Medications (Trade) Dose Ordered Sig/Leandra Route Start Time Stop Time Status Last Admin Dose Admin Lactated Ringer's 1,000 ml @ 75 mls/hr [id number] IV 06/25/16 20:00 07/27/16 19:59 06/27/16 07:19 75 MLS/HR Metronidazole 500 mg/Prmx 100 ml @ 100 mls/hr Q8H IV 06/26/16 04:00 07/05/16 19:59 06/27/16 04:29 100 MLS/HR Piperacillin Sod/ Tazobactam Sod/ Dextrose (Zosyn Iv/D5 100ml) 115 ml @ 28.75 mls/ hr Q8H IV 06/26/16 00:00 07/06/16 00:00 06/27/16 07:19 28.75 MLS/HR Hydromorphone HCl (Dilaudid Inj) 0.5 mg Q3H PRN IV 06/25/16 18:00 07/09/16 17:59 Hydromorphone HCl (Dilaudid Inj) 1 mg Q3H PRN IV 06/25/16 18:00 07/09/16 17:59 Heparin Sodium (Porcine) 5000 unit 5,000 unit Q12H SQ 06/26/16 08:00 07/26/16 07:59 Promethazine HCl/ Sodium Chloride (Phenergan Inj/ Nss 50ml) 51 ml @ 204 mls/hr Q6H PRN IV 06/25/16 18:00 07/25/16 17:59 Ondansetron HCl (Zofran Inj) 4 mg Q6H PRN IV 06/25/16 18:00 07/25/16 17:59 Ketorolac Tromethamine (Toradol Inj) 30 mg Q6H IV. 06/25/16 21:00 06/27/16 15:01 06/27/16 09:09 30 MG Piperacillin Sod/ Tazobactam Sod (Consult) 1 ea UD PRN N/A 06/25/16 20:15 07/25/16 20:14 Citalopram Hydrobromide (celeXA TAB) 20 mg HS PO 06/26/16 21:00 07/26/16 20:59 06/26/16 20:56 20 MG (Rebeca Bond PA-C) Objective Vital Signs Date Time Temp Pulse Resp B/P Pulse Ox O2 Delivery O2 Flow Rate FiO2 06/27/16 07:14 36.7 83 16 98/64 98 Room Air 06/27/16 07:10 Room Air 06/27/16 00:25 Room Air 06/26/16 23:00 37.0 84 16 104/57 97 Room Air 06/26/16 15:50 Room Air 06/26/16 15:15 36.7 90 18 106/71 99 Room Air (Rebeca Bond PA-C) Physical Exam General Appearance: WD/WN, no apparent distress, + thin Eyes: sclerae normal ENT: hearing grossly normal Neck: supple, no JVD, trachea midline Respiratory/Chest: lungs clear, normal breath sounds, no respiratory distress, no accessory muscle use Cardiovascular: regular rate, rhythm, no gallop, no murmur Abdomen: normal bowel sounds, non tender, soft Extremities: no pedal edema, no calf tenderness Neurologic/Psychiatric: alert, oriented x 3 Skin: normal color, warm/dry (Rebeca Bond PA-C) Laboratory Results Last 24 Hours Test 06/27/16 06:42 White Blood Count 9.43 K/uL Red Blood Count 3.41 M/uL Hemoglobin 10.0 g/dL Hematocrit 30.4 % Mean Corpuscular Volume 89.1 fL Mean Corpuscular Hemoglobin 29.3 pg Mean Corpuscular Hemoglobin Concent 32.9 g/dl RDW Standard Deviation 41.6 fL RDW Coefficient of Variation 12.8 % Platelet Count 327 K/uL Mean Platelet Volume 9.6 fL Sodium Level 145 mmol/L Potassium Level 3.8 mmol/L Chloride Level 110 mmol/L Carbon Dioxide Level 27 mmol/L Anion Gap 8.0 mmol/L Blood Urea Nitrogen 3 mg/dl Creatinine 0.51 mg/dl Est Creatinine Clear Calc Drug Dose 133.4 ml/min Estimated GFR () > 150.0 Estimated GFR (Non- 133.6 BUN/Creatinine Ratio 6.6 Random Glucose 91 mg/dl Calcium Level 7.9 mg/dl Magnesium Level 1.9 mg/dl (Rebeca Bond PA-C) Assessment and Plan Ms. Lee is a 25 y/o female with PMHx Anxiety/Depression who presents with RLQ abdominal pain. CT significant for what appears to be a contained ruptured appendix. Sepsis 2/2 Acute Appendicitis with Contained Perforation: IMPROVING - Patient afebrile, leukocytosis resolved, no evidence of peritonitis on physical exam - Dr. Shah as primary service -- Plan to treat with 2 weeks antibiotics with appendectomy in 6-8 weeks - Advance diet as tolerated - Flagyl 500 mg IV Q8H and Zosyn per pharmacy dosing - Toradol 30 mg IV Q6H and Dilaudid 0.5-1 mg Q3H PRN Hypokalemia: RESOLVED - Trend with BMP Anxiety/Depression: - Celexa 20 mg HS DVT Prophylaxis: - Ambulation - Heparin 5000 units BID Code Status: FULL RESUSCITATION Disposition: Return home when medically stable per primary - Hospitalist recommendation - patient without fevers or signs of peritonitis and next 48 hours consider discharge on oral Augmentin and Flagyl versus oral Avelox with close follow-up as outpatient until scheduled surgery Continued [facility] stay due to: multiple IV medications needed Discharge planning: home (Rebeca Bond PA-C) I personally evaluated this patient and performed a physical exam. I reviewed the orders. I read this note completed by Rebeca Bond PA-C and agree with the contents in entirety. (Dexter Cuenca, DO)
[2016-06-27 15:25] VITALS: BP 94/61; PULSE 91; TEMP 36.9; O2SAT 99
--- NOTE | 2016-06-27 16:14 | Pharmacy Progress Note ---
Automatic IV to PO Conversion Date of Service: Jun 27, 2016. [facility] has identified patient as an appropriate candidate for automatic intravenous to oral conversion. Eligible medication: Flagyl IV every 8 hours. Subjective The patient is a 25 year old female admitted on Jun 25, 2016 at 17:58 for Appendicitis. Objective Vital Signs: Vital Signs Past 12 Hours Date Time Temp Pulse Resp B/P Pulse Ox O2 Delivery O2 Flow Rate FiO2 06/27/16 15:25 36.9 91 18 94/61 99 Room Air 06/27/16 12:00 Room Air 06/27/16 07:14 36.7 83 16 98/64 98 Room Air 06/27/16 07:10 Room Air White Blood Count: Test 06/27/16 06:42 White Blood Count 9.43 K/uL (4.8-10.8) Height (Feet): 5 Height (Inches): 2.00 Weight (Kilograms): 51.300 Type of Diet: Full Liquid Assessment & Plan The Infectious Disease Society and the [place] [employer] recommend conversion to oral therapy once a patient is determined to be clinically stable and are able to tolerate oral medications. Patient identified as appropriate candidate for IV to PO conversion of Flagyl based on the following criteria: * Afebrile for greater than or equal to 12 hours * Receiving oral/enteral medications and/or tolerating oral/enteral diet for greater than 24 hours * Improvement in clinical condition evidenced by .. WBC count of 9.4 10^3/uL and trending downward, resolution of signs/symptoms of illness * Hemodynamically stable Automatic conversion to: Flagyl PO every 8 hours
[2016-06-27] MEDS ORDERED: AMOX875T PO (17:08)
[2016-06-27] MEDS ORDERED: TRAM-10 PO (17:08)
[2016-06-27] MEDS: METRONIDAZOLE 500 MG TAB PO SCH (19:56)
[2016-06-27] MEDS: CITALOPRAM 20 MG TAB PO SCH (20:59)
[2016-06-27 22:28] VITALS: TEMP 37.1
[2016-06-27 22:53] VITALS: BP 108/69; PULSE 94; TEMP 37.1; O2SAT 99
[2016-06-28] MEDS: PIPERACILL/TAZOBAC IV 3.375 GM in DEXTROSE 5% 100ML 100 ML IV SCH ×2 (00:34→08:36)
[2016-06-28] MEDS: LACTATED RINGER'S 1000ML 1,000 ML IV SCH ×2 (01:11→05:28)
--- NOTE | 2016-06-28 03:19 | Discharge Instructions ---
Discharge Instructions Date of Service Jun 28, 2016. Admission Reason for Admission: Appendicitis Discharge Discharge Diagnosis / Problem: appendicitis with phlegmon Discharge Goals Goal(s): Decrease discomfort, Improve function, Improve disease control Activity Recommendations Activity Limitations: as noted below Lifting Limitations: no more than 25 pounds Exercise/Sports Limitations: until after follow-up appointment May Resume Sexual Activity: after two weeks Shower/Bathe: no limitations Driving or Machine Use: resume 3 days after discharge SPECIAL CARE INSTRUCTION Call your doctor if: * Temperature above 101 degrees * Pain not relieved by pain medicine ordered * There is increased drainage or redness from any incision * You have any unanswered questions or concerns [phone]. FOLLOW UP VISIT: If not already scheduled, please call the office for a follow-up visit. for 1-2 weeks- checkup- may see my life science research assistant if Dr Shah is away OFFICE PHONE NUMBER: Dr. Shah Office . Current Hospital Diet Patient's current hospital diet: Low Fiber Diet Discharge Diet Recommended Diet: Low Fiber Diet (1-2 weeks) Pending Studies Studies pending at discharge: no Laboratory Results Hemoglobin A1c Test 06/17/16 11:37 Range/Units Estimated Average Glucose 97 mg/dl Hemoglobin A1c 5.0 4.5-5.6 % Work Instructions Return To Work: after follow-up (will need 1-2 weeks recovery and possibly longer, my office can give you a note and fill out paperwork) Medical Emergencies . Who to Call and When: Medical Emergencies: If at any time you feel your situation is an emergency, please call 911 immediately. . Non-Emergent Contact Non-Emergency issues call your: Surgeon . "Provider Documentation" section prepared by Chandana Shah. VTE Core Measure Inpt VTE Proph given/why not?: SCD's
[2016-06-28] MEDS: METRONIDAZOLE 500 MG TAB PO SCH ×3 (03:41→20:12)
--- NOTE | 2016-06-28 06:54 | Surgery Progress Note ---
Surgery Progress Note Date of Service Jun 28, 2016. Subjective afeb, tolerating diet- loose bms- first she has moved her bowels since adm. very good urine output Objective Vital Signs: Date Time Temp Pulse Resp B/P Pulse Ox O2 Delivery O2 Flow Rate FiO2 06/28/16 00:15 Room Air 06/27/16 22:53 37.1 94 16 108/69 99 Room Air 06/27/16 22:28 37.1 06/27/16 15:25 36.9 91 18 94/61 99 Room Air 06/27/16 12:00 Room Air 06/27/16 07:14 36.7 83 16 98/64 98 Room Air 06/27/16 07:10 Room Air General Appearance: no apparent distress Respiratory/Chest: no respiratory distress Abdomen: normal bowel sounds, non tender, soft Laboratory Results: Results Past 24 Hours Test 06/28/16 04:44 Range/Units Assessment & Plan 06/28/16- overall doing well- wbc now normal. will check for c diff. Stop IV fluid, cont atbx IV- plan would be to switch to po tomorrow possible d/c Sun depending on progress. Will ask ID to see may consider other atbx. Low residue diet Dr Davis covering over weekend 06/27/16- overall stable on IV atbx and clear liquids- abd is soft with normal bowel sounds- will adv to full liquids- cont IV atbx at least 2 more days , then to po Augmentin at some point 06/26/16- vital signs improved- afeb, HR normal- cont IV fluids, atbx will give clear liquids, ambulate, check labs 06/25/16- adm with phlegmonous appendicitis- nonoperative treatment for now with planned interval appendectomy . IV fluids and atbx 06/27/16- overall stable on IV atbx and clear liquids- abd is soft with normal bowel sounds- will adv to full liquids- cont IV atbx at least 2 more days , then to po Augmentin at some point 06/26/16- vital signs improved- afeb, HR normal- cont IV fluids, atbx will give clear liquids, ambulate, check labs 06/25/16- adm with phlegmonous appendicitis- nonoperative treatment for now with planned interval appendectomy . IV fluids and atbx
[2016-06-28 07:39] VITALS: BP 108/70; PULSE 84; TEMP 37.2; O2SAT 97
[2016-06-28 07:53] VITALS: O2SAT 98
[2016-06-28] MEDS: HEPARIN SOD 5000 UNIT/0.5 ML CARP SQ SCH ×2 (08:00→20:00)
[2016-06-28 08:23] LABS: MEAN CELL VOLUME 88.9 fL (80-100); MEAN CORPUSCULAR HGB CONC 33.8 g/dl (32-36); MEAN PLATELET VOLUME 9.6 fL (7.4-10.4); PLATELET COUNT 362 K/uL (130-400); WHITE BLOOD COUNT 10.11 K/uL (4.8-10.8)
[2016-06-28 08:50] LABS: BUN/CREATININE RATIO 5.6 (10-20); CALCIUM 8.2 mg/dl (8.5-10.1); CREATININE 0.57 mg/dl (0.60-1.20); POTASSIUM 3.3 mmol/L (3.5-5.1)
--- NOTE | 2016-06-28 10:12 | Medical Consult ---
Consultation Date of Consultation: Jun 28, 2016. Attending Physician: Chandana Shah M.D. Reason for Consultation: abx choice, ruptured appendicitis History of Present Illness Patient is a 25-year-old female who presents to the emergency department with complaints of low back pain, right flank pain, fevers, chills, and nausea for 1 week. The patient states that her symptoms continued to get worse over the past week and did not resolve at home. She was having fever, sweats, and chills prior to admission as well. On admission, the patient's white blood cell count was 14.15. Her ESR was 42. Her C reactive protein was 14.70. Her creatinine was 0.70. She did have a CT of the abdomen/pelvis which showed abnormal soft tissue in the right lower quadrant and also difficulty identifying the tip of the appendix, therefore the possibility of acute appendicitis with perforation was raised. No renal stones and hydronephrosis. She is currently on IV Zosyn and has been improving. Her white blood cell count has been trending down. Her fever has resolved. The patient is overall feeling better. She has had some mild diarrhea. A C diff toxin is being tested today. I did discuss patient with Dr. Shah and Dr. Vides. Past Medical/Surgical History Medical Problems: (1) Appendicitis with perforation Status: Acute Medical Problems: (1) Appendicitis (2) Migraine W Aura W/O Intract Mgrn W/O Status Migrainosus (3) Raynaud disease Surgical Problems: (1) History of wisdom tooth extraction Family History Cancer FH: diabetes mellitus FH: hypertension Noncontributory Social History Smoking Status: Never Smoker Alcohol Use: none Drug Use: none Marital Status: single, in relationship Housing Status: lives with significant other Occupation Status: employed Allergies Coded Allergies: No Known Allergies (Unverified , 06/25/16) Home Medications Reported Home Medications Medications Dose Route/Sig Max Daily Dose Days Date Category Ultram (Tramadol HCl) 50 Mg Tab 1-2 Tab PO Q 6 HRS PRN 30 06/27/16 Rx Augmentin 875-125 mg (Amoxicillin & Pot Clavulanate) 1 Tab Tab 1 Tab PO BID 14 06/27/16 Rx Celexa (Citalopram Hydrobromide) 20 Mg Tab 20 Mg PO DAILY 01/14/16 Reported Current Inpatient Medications Current Inpatient Medications Medications (Trade) Dose Ordered Sig/Leandra Route Start Time Stop Time Status Last Admin Dose Admin Piperacillin Sod/ Tazobactam Sod/ Dextrose (Zosyn Iv/D5 100ml) 115 ml @ 28.75 mls/ hr Q8H IV 06/26/16 00:00 07/06/16 00:00 06/28/16 08:36 28.75 MLS/HR Hydromorphone HCl (Dilaudid Inj) 0.5 mg Q3H PRN IV 06/25/16 18:00 07/09/16 17:59 Hydromorphone HCl (Dilaudid Inj) 1 mg Q3H PRN IV 06/25/16 18:00 07/09/16 17:59 Heparin Sodium (Porcine) 5000 unit 5,000 unit Q12H SQ 06/26/16 08:00 07/26/16 07:59 Promethazine HCl/ Sodium Chloride (Phenergan Inj/ Nss 50ml) 51 ml @ 204 mls/hr Q6H PRN IV 06/25/16 18:00 07/25/16 17:59 Ondansetron HCl (Zofran Inj) 4 mg Q6H PRN IV 06/25/16 18:00 07/25/16 17:59 Piperacillin Sod/ Tazobactam Sod (Consult) 1 ea UD PRN N/A 06/25/16 20:15 07/25/16 20:14 Citalopram Hydrobromide (celeXA TAB) 20 mg HS PO 06/26/16 21:00 07/26/16 20:59 06/27/16 20:59 20 MG Metronidazole (Flagyl Tab) 500 mg Q8H PO 06/27/16 20:00 07/07/16 19:59 06/28/16 03:41 500 MG Potassium Chloride (Klor-Con M10) 20 meq NOW STAT PO 06/28/16 09:51 06/28/16 09:52 UNV Review of Systems Constitutional: + chills, + fever, + sweats (Now resolved) Eyes: No worsening of vision ENT: No hearing loss Respiratory: No cough Cardiovascular: No chest pain Abdomen: + diarrhea, + pain (now resolved) Musculoskeletal: No joint pain, No muscle pain Genitourinary - Female: No dysuria, No urinary frequency, No urinary urgency Integumentary: No itch, No rash Physical Exam Date Time Temp Pulse Resp B/P Pulse Ox O2 Delivery O2 Flow Rate FiO2 06/28/16 08:20 Room Air 06/28/16 07:53 98 Room Air 06/28/16 07:39 37.2 84 16 108/70 97 Room Air 06/28/16 00:15 Room Air 06/27/16 22:53 37.1 94 16 108/69 99 Room Air 06/27/16 22:28 37.1 06/27/16 15:25 36.9 91 18 94/61 99 Room Air 06/27/16 12:00 Room Air General Appearance: WD/WN, no apparent distress Head: normocephalic, atraumatic Eyes: normal inspection, sclerae normal ENT: hearing grossly normal Neck: supple, + adenopathy present Respiratory/Chest: chest non-tender, lungs clear, normal breath sounds, no respiratory distress, no accessory muscle use Cardiovascular: no murmur, + tachycardia Abdomen/GI: normal bowel sounds, soft Back: normal inspection Extremities/Musculoskelatal: normal range of motion Neurologic/Psych: alert, normal mood/affect, oriented x 3 Skin: normal color, warm/dry, no rash Laboratory Results ABDOMEN AND PELVIS CT WITHOUT CONTRAST CT DOSE: 253.94 mGy.cm HISTORY: Right flank pain. Fever. TECHNIQUE: Multiaxial CT images of the abdomen and pelvis were performed without contrast. COMPARISON STUDY: None. FINDINGS: The lung bases are clear. No pneumoperitoneum. No pneumatosis. No fractures within the visualized osseous structures. The proximal portion of the appendix is normal and is seen in image 285. However, the tip the appendix is difficult to identify but appears to extend into an area of abnormal soft tissue/inflammatory change within the right lower quadrant. Therefore, these findings are concerning for acute appendicitis. Trace pelvic free fluid. No evidence for bowel obstruction. The unenhanced liver, gallbladder, pancreas, spleen, kidneys, and adrenal glands are unremarkable. No renal stones or hydronephrosis. The bladder is unremarkable. Overall, suboptimal evaluation for bowel pathology due to the lack of intravenous and oral contrast. IMPRESSION: 1. There is an area of abnormal soft tissue which favors inflammatory change/phlegmon within the right lower quadrant. The proximal portion of the appendix is normal. The tip the appendix is difficult to identify but may extend into this area. Therefore, these findings raise the possibility of acute appendicitis. Clinical correlation recommended. 2. No renal stones or hydronephrosis. 3. Overall, suboptimal evaluation for bowel pathology due to the lack of intravenous and oral contrast. 4. Trace pelvic free fluid. Last 24 Hours Test 06/28/16 07:37 06/28/16 07:42 Sodium Level 141 mmol/L Potassium Level 3.3 mmol/L Chloride Level 106 mmol/L Carbon Dioxide Level 27 mmol/L Anion Gap 8.0 mmol/L Blood Urea Nitrogen 3 mg/dl Creatinine 0.57 mg/dl Est Creatinine Clear Calc Drug Dose 119.4 ml/min Estimated GFR () 149.3 Estimated GFR (Non- 128.8 BUN/Creatinine Ratio 5.6 Random Glucose 86 mg/dl Calcium Level 8.2 mg/dl White Blood Count 10.11 K/uL Red Blood Count 3.60 M/uL Hemoglobin 10.8 g/dL Hematocrit 32.0 % Mean Corpuscular Volume 88.9 fL Mean Corpuscular Hemoglobin 30.0 pg Mean Corpuscular Hemoglobin Concent 33.8 g/dl RDW Standard Deviation 40.9 fL RDW Coefficient of Variation 12.7 % Platelet Count 362 K/uL Mean Platelet Volume 9.6 fL Assessment & Plan Patient with likely ruptured appendicitis and phlegmon around the appendix on CT scan. She is improving, WBC count improve, no continued fevers, and she is currently on IV Zosyn. After discussion with Dr. Shah, Dr. Vides, and patient, would prefer to change this patient to IV Ertapenem x [address] a PICC line prior to transition to PO Augmentin. The patient is agreeable to this plan. She will need a PICC line. Once abx are set up for at home- she is OK for D/C from ID perspective once cleared medically/surgically. We will follow up with her as an outpatient as well. Thanks PROVIDER ADDENDUM: Patient examined and reviewed with Ms. Rosas. Agree with above assessment.
[2016-06-28] MEDS ORDERED: POTASSIUM CHLORIDE 10 MEQ TABCR PO ONE (10:30)
[2016-06-28] MEDS ORDERED: NURSING VERBAL MED ORDER ONE (12:30)
[2016-06-28] MEDS: ERTAPENEM IV 1 GM in SODIUM CHLOR 0.9% AD-VAN 50ML 50 ML IV SCH (12:41)
--- NOTE | 2016-06-28 14:41 | Progress Note ---
Subjective Date of Service: Jun 28, 2016. (Rebeca Bond PA-C) Subjective Pt evaluation today including: conversation w/ patient, conversation w/ family , physical exam, chart review, lab review, review of studies, review of inpatient medication list Patient seen and evaluated. No acute events overnight. Patient is due for PICC line insertion for extended antibiotic coverage prior to appendectomy. Patient is feeling well. She denies abdominal pain. No new fever/chills appreciated. (Rebeca Bond PA-C) Problem List Medical Problems: (1) Appendicitis with perforation Status: Acute (Rebeca Bond PA-C) Review of Systems Constitutional: No chills, No fever Respiratory: No shortness of breath Cardiac: No chest pain Abdomen: No constipation, No diarrhea, No nausea, No pain, No vomiting Musculoskeletal: No calf pain, No swelling Female : No dysuria Skin: No rash (Rebeca Bond PA-C) Medications Current Inpatient Medications Medications (Trade) Dose Ordered Sig/Leandra Route Start Time Stop Time Status Last Admin Dose Admin Hydromorphone HCl (Dilaudid Inj) 0.5 mg Q3H PRN IV 06/25/16 18:00 07/09/16 17:59 Hydromorphone HCl (Dilaudid Inj) 1 mg Q3H PRN IV 06/25/16 18:00 07/09/16 17:59 Heparin Sodium (Porcine) 5000 unit 5,000 unit Q12H SQ 06/26/16 08:00 07/26/16 07:59 Promethazine HCl/ Sodium Chloride (Phenergan Inj/ Nss 50ml) 51 ml @ 204 mls/hr Q6H PRN IV 06/25/16 18:00 07/25/16 17:59 Ondansetron HCl (Zofran Inj) 4 mg Q6H PRN IV 06/25/16 18:00 07/25/16 17:59 Citalopram Hydrobromide (celeXA TAB) 20 mg HS PO 06/26/16 21:00 07/26/16 20:59 06/27/16 20:59 20 MG Metronidazole 500 mg 500 mg Q8H PO 06/27/16 20:00 07/07/16 19:59 06/28/16 12:41 500 MG Ertapenem/Sodium Chloride (Invanz Iv/Nss Ad-Van 50ml) 50 ml @ 120 mls/hr Q24H IV 06/28/16 13:00 07/08/16 12:59 06/28/16 12:41 120 MLS/HR (Rebeca Bond PA-C) Objective Vital Signs Date Time Temp Pulse Resp B/P Pulse Ox O2 Delivery O2 Flow Rate FiO2 06/28/16 08:20 Room Air 06/28/16 07:53 98 Room Air 06/28/16 07:39 37.2 84 16 108/70 97 Room Air 06/28/16 00:15 Room Air 06/27/16 22:53 37.1 94 16 108/69 99 Room Air 06/27/16 22:28 37.1 06/27/16 15:25 36.9 91 18 94/61 99 Room Air (Rebeca Bond, ULISESC) Physical Exam General Appearance: WD/WN, no apparent distress, + thin Eyes: sclerae normal ENT: hearing grossly normal Neck: supple, no JVD, trachea midline Respiratory/Chest: lungs clear, normal breath sounds, no respiratory distress, no accessory muscle use Cardiovascular: regular rate, rhythm, no gallop, no murmur Abdomen: normal bowel sounds, non tender, soft Extremities: no pedal edema, no calf tenderness Neurologic/Psychiatric: alert, oriented x 3 Skin: normal color, warm/dry (Rebeca Bond, ULISESC) Laboratory Results Last 24 Hours Test 06/28/16 07:37 06/28/16 07:42 Sodium Level 141 mmol/L Potassium Level 3.3 mmol/L Chloride Level 106 mmol/L Carbon Dioxide Level 27 mmol/L Anion Gap 8.0 mmol/L Blood Urea Nitrogen 3 mg/dl Creatinine 0.57 mg/dl Est Creatinine Clear Calc Drug Dose 119.4 ml/min Estimated GFR () 149.3 Estimated GFR (Non- 128.8 BUN/Creatinine Ratio 5.6 Random Glucose 86 mg/dl Calcium Level 8.2 mg/dl White Blood Count 10.11 K/uL Red Blood Count 3.60 M/uL Hemoglobin 10.8 g/dL Hematocrit 32.0 % Mean Corpuscular Volume 88.9 fL Mean Corpuscular Hemoglobin 30.0 pg Mean Corpuscular Hemoglobin Concent 33.8 g/dl RDW Standard Deviation 40.9 fL RDW Coefficient of Variation 12.7 % Platelet Count 362 K/uL Mean Platelet Volume 9.6 fL (Rebeca Bond PA-C) Assessment and Plan Ms. Lee is a 25 y/o female with PMHx Anxiety/Depression who presents with RLQ abdominal pain. CT significant for what appears to be a contained ruptured appendix. Sepsis 2/2 Acute Appendicitis with Contained Perforation: IMPROVING - Patient afebrile, leukocytosis resolved, no evidence of peritonitis on physical exam - Dr. Shah as primary service -- Plan to treat with 2 weeks antibiotics with appendectomy in 6-8 weeks - Advance diet as tolerated - Infectious disease following - plan for PICC line insertion and continue antibiotics Hypokalemia: - Replete as necessary - Trend with BMP Anxiety/Depression: - Celexa 20 mg HS DVT Prophylaxis: - Ambulation - Heparin 5000 units BID Code Status: FULL RESUSCITATION Disposition: Return home when medically stable per primary possibly Friday or Friday - Continued [facility] stay due to: multiple IV medications needed Discharge planning: home (Rebeca Bond PA-C) I personally evaluated this patient and performed a physical exam. I reviewed the orders. I read this note completed by Rebeca Bond PA-C and agree with the contents in entirety. (Dexter Cuenca, DO)
[2016-06-28 15:40] VITALS: BP 113/74; PULSE 77; TEMP 36.9; O2SAT 99
[2016-06-28] MEDS: CITALOPRAM 20 MG TAB PO SCH (20:12)
[2016-06-28 23:45] VITALS: BP 107/71; PULSE 85; TEMP 37.3; O2SAT 97
[2016-06-29] MEDS: METRONIDAZOLE 500 MG TAB PO SCH ×2 (05:10→11:47)
[2016-06-29 07:20] VITALS: BP 100/66; PULSE 92; TEMP 37.1; O2SAT 95
[2016-06-29] MEDS: HEPARIN SOD 5000 UNIT/0.5 ML CARP SQ SCH (08:00)
--- NOTE | 2016-06-29 09:55 | Surgery Progress Note ---
Surgery Progress Note Date of Service Jun 29, 2016. Subjective Post OP Day: HD 5 + diet, + feeling well, + pain controlled, No complaints, No nausea, No vomiting Objective Vital Signs: Date Time Temp Pulse Resp B/P Pulse Ox O2 Delivery O2 Flow Rate FiO2 06/29/16 07:43 Room Air 06/29/16 07:20 37.1 92 18 100/66 95 Room Air 06/29/16 00:25 Room Air 06/28/16 23:45 37.3 85 16 107/71 97 Room Air 06/28/16 16:15 Room Air 06/28/16 15:40 36.9 77 15 113/74 99 Room Air General Appearance: WD/WN, no apparent distress Head: normocephalic, atraumatic Neck: supple Respiratory/Chest: chest non-tender, lungs clear Cardiovascular: regular rate, rhythm Abdomen: normal bowel sounds, non distended, soft, + tenderness (mild) Extremities: non-tender, no pedal edema Assessment & Plan Appendiceal phlegmon -responding to conservative treatment -no pain -taking po -PICC in place -discharge with IV abx at home
[2016-06-29 10:03] VITALS: BP 100/66; PULSE 92; TEMP 37.1; O2SAT 95
[2016-06-29] MEDS: ERTAPENEM IV 1 GM in SODIUM CHLOR 0.9% AD-VAN 50ML 50 ML IV SCH (11:48)
--- NOTE | 2016-07-03 10:58 | DISCHARGE SUMMARY ---
PRINCIPAL DIAGNOSIS: Ruptured appendix with phlegmon. HISTORY OF PRESENT ILLNESS: The patient is a 25-year-old female who has been having abdominal symptoms and pain for approximately 1 week, presenting to the Emergency Room with CT evidence of an inflammatory phlegmon in the right lower quadrant consistent with probable acute appendicitis with rupture. HOSPITAL COURSE: The patient was admitted to the hospital. I felt her best course would be to treat her with antibiotics and attempt an interval appendectomy in 6-8 weeks if possible. The patient did quite well with initial resuscitation of fluids and IV antibiotics. We did have the medical team and also infectious disease see the patient and eventually developed a plan to send her home on IV antibiotics via a PICC line for approximately 2 weeks. She was to be followed in the surgical clinic within 1 week.
[2016-08-06] MEDS ORDERED: MULT-506 PO (07:34)
[2016-08-06] MEDS ORDERED: LACT1CAP6 PO (07:34)
[2016-08-06] MEDS ORDERED: AMOX875T PO (07:34)
== END 2016-06-29 13:27 | disposition home health service (06) | DRG 871 ==
LOC: ENRESERVDT → ENRESERVTM → C.EDB 15:19 → C.MSN 17:58
PROVIDERS: ADMIT Surgery; ATTEND Surgery
PROC: 02HV33Z Insertion of Infusion Device into Superior Vena Cava, Percutaneous Approach (ICD-10-PCS; principal; 2016-06-28)
DX: A41.9 Sepsis, unspecified organism (principal); K35.3 Acute appendicitis with localized peritonitis; Z83.3 Family history of diabetes mellitus; I73.00 Raynaud's syndrome without gangrene; E87.6 Hypokalemia

== ENCOUNTER → 2016-07-02 | Outpatient (CLI) | payer BC ==
[~2016-07-02] MED LIST changes: +AMOX875T PO; -CRAN400C PO; +HYDR-5688 PO; +LACT1CAP6 PO; +MULT-506 PO; +TRAM-10 PO
[2016-07-02 10:24] LABS: BASO % 0.4 %; BASO ABS # 0.03 K/uL (0-0.2); COMPLETE YES; EOS % 1.6 %; HEMATOCRIT 36.5 % (37-47); IG% 0.3 %; LYMPH % 21.2 %; LYMPH ABS # 1.63 K/uL (1.2-3.4); MEAN CORPUSCULAR HEMOGLOBIN 29.4 pg (25-34); MEAN CORPUSCULAR HGB CONC 33.4 g/dl (32-36); MEAN PLATELET VOLUME 9.9 fL (7.4-10.4); MONO % 8.1 %; NEUT % 68.4 %; PLATELET COUNT 479 K/uL (130-400); RED BLOOD COUNT 4.15 M/uL (4.2-5.4)
[2016-07-02 10:32] LABS: ALT/SGPT 9 U/L (12-78); BLOOD UREA NITROGEN 8 mg/dl (7-18); BUN/CREATININE RATIO 14.3 (10-20); CALCIUM 8.7 mg/dl (8.5-10.1); CARBON DIOXIDE 29 mmol/L (21-32); CHLORIDE 106 mmol/L (98-107); CREATININE 0.53 mg/dl (0.60-1.20); GLUCOSE 79 mg/dl (70-99); POTASSIUM 3.9 mmol/L (3.5-5.1); SODIUM 142 mmol/L (136-145)
[2016-07-02 10:36] LABS: ALB/GLOB RATIO 0.6 (0.9-2); ALKALINE PHOSPHATASE 62 U/L (45-117); AST/SGOT 13 U/L (15-37)
== END | disposition home or self-care (01) ==
LOC: C.LABSPEC 10:12
PROVIDERS: ATTEND Surgery
DX: K37 Unspecified appendicitis (principal); R42 Dizziness and giddiness; R10.9 Unspecified abdominal pain

== ENCOUNTER → 2016-07-10 | Outpatient (CLI) | payer BC ==
--- NOTE | 2016-07-11 09:35 | CODING QUERY NO DIAGNOSIS ---
Valid Physician Order Needed A valid physician order must be submitted in order to properly bill for the service(s) provided, including date of service(s), valid diagnosis, and physician signature. If these tests are done on a recurring basis the original physican order must be submitted in order to code and bill for the service(s) provided. Please fax us the original, signed physician order so that we may expedite billing to [phone] DOS 06/09/16 * ESR ORDERED BY DR. MARK Thank you Lynette [facility] Information Management
== END | disposition home or self-care (01) ==
LOC: C.LABSPEC 17:26
PROVIDERS: ATTEND Surgery
DX: K35.2 Acute appendicitis with generalized peritonitis (principal); I73.00 Raynaud's syndrome without gangrene

== ENCOUNTER → 2016-08-05 | Outpatient (CLI) | payer BC ==
[~2016-08-05] MED LIST changes: +OPTIRAY 320 IV PRN; -TRAM-10 PO
--- NOTE | 2016-08-05 16:15 | DIAGNOSTIC IMAGING REPORT ---
CT OF THE ABDOMEN AND PELVIS WITH CONTRAST CLINICAL HISTORY: Perforated appendicitis. COMPARISON STUDY: CT of the abdomen and pelvis June 25, 2016. TECHNIQUE: Following IV administration of 93 mL of Optiray-320, axial images of the abdomen and pelvis were obtained from the lung bases to the proximal femurs. Images were reviewed in the axial, sagittal, and coronal planes. IV contrast was administered without complication. Oral contrast was administered. CT DOSE: 256.57 mGy.cm FINDINGS: Lung bases are clear. The liver, spleen, adrenal glands, left kidney and pancreas are normal. Note is made of a 1.3 cm water attenuation lesion within the midpole of the right kidney which is consistent with a cyst. There is no pneumatosis, free air or portal venous gas. The appendix is moderately dilated, measuring 1.2 cm in caliber. There is suspected appendiceal wall thickening and mild periappendiceal infiltration. Periappendiceal infiltration has significantly improved since exam of June 25, 2016. There is no abscess or free air. The appendix is retrocecal in location. The ovaries are not enlarged. There is no evidence for a bowel obstruction. Skeletal structures are unremarkable. IMPRESSION: Findings consistent with acute appendicitis. Appendiceal dilatation with wall thickening and mild periappendiceal infiltration which has significantly improved since exam of June 25, 2016. No abscess or free air. Electronically signed by: Eduardo Lu M.D. 08/05/2016 4:14 PM Dictated Date/Time: 08/05/2016 4:07 PM
== END | disposition home or self-care (01) ==
LOC: C.CTS 15:06
PROVIDERS: ATTEND Surgery
DX: K35.2 Acute appendicitis with generalized peritonitis (principal); K38.9 Disease of appendix, unspecified

== ENCOUNTER 2016-08-14 06:51 | Inpatient (IN) | payer BC ==
[2016-08-06 07:34] VITALS: BMI 21.0
[~2016-08-14] VITALS: Ht 157.5 cm; Wt 52.3 kg
[2016-08-14] VITALS (8 sets, daily range): BP systolic 100–129; BP diastolic 61–84; PULSE 80–111; TEMP 36.5–37; O2SAT 95–100; Ht 157.5 cm; Wt 52.3 kg
[~2016-08-14 06:51] MED LIST changes: -HYDR-5688 PO; +LACTATED RINGER'S 1000ML 1,000 ML IV SCH; -OPTIRAY 320 IV PRN; +PIPERACILL/TAZOBAC IV 3.375 GM in DEXTROSE 5% 100ML IV SCH
[2016-08-14] MEDS ORDERED: ONDANSETRON INJ 2 MG/ML 2 ML VIAL ONE ×2 (07:37→10:09)
[2016-08-14] MEDS ORDERED: LIDOCAINE HCL 2% 2 ML VIAL (20MG/ML) ONE (07:37)
[2016-08-14] MEDS ORDERED: NEOSTIGMINE METHYLSULFATE 5 MG/5 ML SYR ONE (07:37)
[2016-08-14] MEDS ORDERED: MIDAZOLAM HCL 1 MG/ML 2ML VIAL ONE (07:37)
[2016-08-14] MEDS ORDERED: FENTANYL CITRATE INJ 50 MCG/1 ML 2 ML VIAL ONE ×2 (07:37→09:41)
[2016-08-14] MEDS ORDERED: PROPOFOL IV EMULSION 10 MG/ML 20 ML VIAL IV ONE (07:37)
[2016-08-14] MEDS ORDERED: ROCURONIUM BROMIDE 10 MG/ML 5 ML VIAL ONE (07:37)
[2016-08-14] MEDS ORDERED: GLYCOPYRROLATE INJ 0.2 MG/ML VIAL ONE (07:37)
[2016-08-14] MEDS ORDERED: DEXAMETHASONE SOD INJ 4 MG/ML VIAL ONE (07:37)
[2016-08-14] MEDS ORDERED: BUPIVACAINE 0.5 % 5 MG/1 ML MPF 30ML VIAL ONE (08:21)
--- NOTE | 2016-08-14 08:36 | History & Physical Bridge Note ---
H&P Re-Evaluation Bridge Note: I have examined the patient, reviewed the History & Physical and in the interval since the performance of the History & Physical I have noted the following changes of clinical significance: No changes noted
[2016-08-14] MEDS ORDERED: SUCCINYLCHOLINE CHLORIDE 20 MG/ML 10 ML VIAL IV ONE (08:47)
[2016-08-14] MEDS ORDERED: EpHEDrine SULFATE INJ 50 MG/ML AMP IV PRN (09:15)
[2016-08-14] MEDS ORDERED: ATROPINE SULFATE 0.1 MG/ML 5ML SYR IV PRN (09:15)
[2016-08-14] MEDS ORDERED: HYDROmorphone INJ 1 MG/ML SYR IV PRN ×3 (09:15→13:00)
[2016-08-14] MEDS ORDERED: PROMETHAZINE HCL INJ 6.25 MG in SODIUM CHLORIDE 0.9% 50ML 50 ML IV PRN (09:15)
[2016-08-14] MEDS ORDERED: ONDANSETRON INJ 2 MG/ML 2 ML VIAL IV PRN ×2 (09:15→10:45)
--- NOTE | 2016-08-14 10:34 | [facility] Post Operative Brief Note ---
Immediate Operative Summary Operative Date August 14, 2016. Pre-Operative Diagnosis Perforated Appendicitis Post-Operative Diagnosis Perforated Appendicitis Procedure(s) Performed Laproscopic Appendectomy converted to open appendectomy Surgeon Dr. Shah Form Maker Plaster Surgeon(s) Jason Bartholomew: Matt Monge- Medical Student Estimated Blood Loss 30 cc Findings severe chronic adhesions in retrocecal area Specimens appendix Drains none Anesthesia gen Complication(s) None Disposition Recovery Room / PACU
[2016-08-14] MEDS ORDERED: HYDROmorphone INJ 0.5 MG/0.5 ML SYR IV PRN (10:45)
[2016-08-14] MEDS ORDERED: PROMETHAZINE HCL INJ 25 MG in SODIUM CHLORIDE 0.9% 50ML 50 ML IV PRN (10:45)
[2016-08-14] MEDS ORDERED: HYDROCODONE/ACETAMOPHEN 5/325MG TAB PO PRN (10:45)
[2016-08-14] MEDS ORDERED: AMOX875T PO (10:48)
[2016-08-14] MEDS ORDERED: HYDR-5688 PO (10:48)
[2016-08-14] MEDS: FENTANYL CITRATE INJ 50 MCG/1 ML 2 ML VIAL IV PRN ×4 (10:51→11:06)
--- NOTE | 2016-08-14 10:57 | OPERATIVE REPORT ---
DATE OF OPERATION: 08/14/2016 NAME OF OPERATION: Laparoscopy with open appendectomy. PREOPERATIVE DIAGNOSIS: History of ruptured appendix with appendicitis. POSTOPERATIVE DIAGNOSIS: Same. STAFF SURGEON: Dr. Chandana Shah. CUSTOM STOCK MAKER: Jason Thomas PA-C ANESTHESIA: General. DESCRIPTION OF PROCEDURE: The patient was brought into the operating room and placed on the operating table in supine position. Her abdomen was prepped and draped in the usual fashion. Bernstein catheter had been placed. Orogastric tube was placed. Pneumatic stockings placed. The patient had previous ruptured appendix and was treated with antibiotics for at least 6 weeks and now is for appendectomy. Using 0.5% plain Marcaine, all incisions were anesthetized. Incision made just above the umbilicus, carrying dissection down to the fascia, placing a Veress needle, producing pneumoperitoneum. A 5-mm port was placed at this level and then under visualization, a second 5-mm port placed in the suprapubic area and then, a third 5-mm port placed in the left lower quadrant. It did appear that we were able to identify and reflect the appendix. Initially, the base of the appendix was transected using an Endo-HAMMAD stapler and then, a portion of the mesoappendix transected using the Endo-HAMMAD stapler, but then it was apparent to me that the appendix was in a retrocecal position and was extremely adherent and I did encounter some small blood vessels causing some small amount of bleeding, but I did not feel it was safe to continue trying to dissect it away from this area as the colon was also somewhat adherent to the appendix. At this point, I made an incision in the right lower quadrant, carrying dissection down, reflecting the rectus muscle medially, entering the abdominal cavity, identified the appendix and then I was able to dissect it from the retroperitoneum with some difficulty secondary to the adhesions from previous rupture. I did oversew bleeding sites using 2-0 and 0 chromic catgut suture. The tip of the appendix was identified and the entire appendix removed. The site was irrigated with antibiotic solution. I did not feel that we needed a drain because there was no evidence of abscess or significant infection. The posterior fascia and peritoneum were reapproximated using running #1 chromic catgut suture. The anterior fascia was reapproximated using running and interrupted 0 PDS suture. The right lower quadrant incision was closed using subcuticular 5-0 Monocryl and Steri-Strips. The left lower quadrant incision closed by reapproximating the fascia using 0 Vicryl suture. Skin was reapproximated using 4-0 Monocryl suture and Steri-Strips. Suprapubic area and umbilical area were closed with subcuticular 5-0 Monocryl and Dermabond. The patient was transferred to recovery room in stable condition. I attest to the content of the Intraoperative Record and any orders documented therein. Any exceptio ns are noted below.
[2016-08-14 11:04] LABS: HEMATOCRIT 38.9 % (37-47); MEAN CELL VOLUME 90.9 fL (80-100); MEAN CORPUSCULAR HEMOGLOBIN 30.6 pg (25-34); MEAN PLATELET VOLUME 10.5 fL (7.4-10.4); PLATELET COUNT 171 K/uL (130-400); RED BLOOD COUNT 4.28 M/uL (4.2-5.4); WHITE BLOOD COUNT 9.82 K/uL (4.8-10.8)
[2016-08-14 11:09] LABS: MEAN CORPUSCULAR HGB CONC 33.7 g/dl (32-36)
[2016-08-14] MEDS ORDERED: PROMETHAZINE HCL INJ 12.5 MG in SODIUM CHLORIDE 0.9% 50ML 50 ML IV PRN (11:15)
[2016-08-14] MEDS ORDERED: NURSING VERBAL MED ORDER ONE ×2 (11:18→12:30)
[2016-08-14] MEDS ORDERED: DiphenhydrAMINE HCL 50 MG/ML VIAL ONE (11:19)
[2016-08-14] MEDS ORDERED: PIPERACILL/TAZOBAC CONSULT ACTIVE PRN (11:45)
[2016-08-14] MEDS ORDERED: DiphenhydrAMINE HCL 50 MG/ML VIAL IV PRN ×2 (12:45)
--- NOTE | 2016-08-14 12:55 | Anesthesiology Progress Note ---
Anesthesia Post Op Note Date & Time August 14, 2016 at 12:55 Vital Signs Pain Intensity: 5.0 Vital Signs Past 12 Hours Date Time Temp Pulse Resp B/P Pulse Ox O2 Delivery O2 Flow Rate FiO2 08/14/16 11:45 Room Air 08/14/16 11:45 36.6 91 16 129/84 95 Room Air 08/14/16 11:45 95 Room Air 08/14/16 11:35 98 20 130/77 99 Nasal Cannula 2 08/14/16 11:25 36.6 100 12 124/73 99 Nasal Cannula 2 08/14/16 11:15 94 19 121/85 99 Nasal Cannula 2 08/14/16 11:05 79 21 128/83 100 Mask 10 08/14/16 10:55 79 17 127/81 100 Mask 10 08/14/16 10:45 36.4 81 25 136/75 100 Mask 10 08/14/16 07:08 36.5 92 16 119/69 100 Room Air Notes Mental Status: alert / awake / arousable, participated in evaluation Pt Amnestic to Procedure: Yes Nausea / Vomiting: adequately controlled Pain: adequately controlled Airway Patency, RR, SpO2: stable & adequate BP & HR: stable & adequate Hydration State: stable & adequate Anesthetic Complications: no major complications apparent
[2016-08-14] MEDS: LACTATED RINGER'S 1000ML 1,000 ML IV SCH ×2 (13:11→23:31)
[2016-08-14] MEDS: PIPERACILL/TAZOBAC IV 3.375 GM in DEXTROSE 5% 100ML 100 ML IV SCH ×2 (14:03→22:30)
[2016-08-14] MEDS: HYDROCODONE/ACETAMOPHEN 5/325MG TAB PO PRN ×2 (15:28→20:20)
[2016-08-14 16:15] LABS: HEMATOCRIT 39.8 % (37-47)
[2016-08-14] MEDS: KETOROLAC TROMETHAMINE 30 MG/ML VIAL IV. SCH ×2 (18:09→23:30)
[2016-08-14] MEDS: CITALOPRAM 20 MG TAB PO SCH (20:20)
[2016-08-15 02:52] VITALS: BP 92/58; PULSE 73; TEMP 37.1; O2SAT 95
[2016-08-15 04:44] LABS: HEMATOCRIT 36.5 % (37-47); MEAN CELL VOLUME 90.8 fL (80-100); MEAN CORPUSCULAR HEMOGLOBIN 29.9 pg (25-34); MEAN CORPUSCULAR HGB CONC 32.9 g/dl (32-36); MEAN PLATELET VOLUME 11.1 fL (7.4-10.4); PLATELET COUNT 200 K/uL (130-400); RED BLOOD COUNT 4.02 M/uL (4.2-5.4); WHITE BLOOD COUNT 11.63 K/uL (4.8-10.8)
[2016-08-15 04:53] LABS: INR 1.1 (0.9-1.1); PROTHROMBIN TIME (PATIENT) 11.6 SECONDS (9.0-12.0)
[2016-08-15 05:02] LABS: BUN/CREATININE RATIO 10.5 (10-20); CALCIUM 7.9 mg/dl (8.5-10.1); CREATININE 0.65 mg/dl (0.60-1.20); POTASSIUM 3.9 mmol/L (3.5-5.1)
[2016-08-15] MEDS: KETOROLAC TROMETHAMINE 30 MG/ML VIAL IV. SCH ×3 (05:44→18:00)
[2016-08-15] MEDS: PIPERACILL/TAZOBAC IV 3.375 GM in DEXTROSE 5% 100ML 100 ML IV SCH (05:44)
--- NOTE | 2016-08-15 06:02 | Surgery Progress Note ---
Surgery Progress Note Date of Service August 15, 2016. Subjective + ambulating, No nausea, No vomiting feels ok, pain controlled with toradol- mild reaction to dilaudid Objective Vital Signs: Date Time Temp Pulse Resp B/P Pulse Ox O2 Delivery O2 Flow Rate FiO2 08/15/16 02:52 37.1 73 14 92/58 95 Room Air 08/14/16 23:30 Room Air 08/14/16 23:25 36.9 80 14 100/61 96 Room Air 08/14/16 20:05 36.6 111 16 117/73 95 Room Air 08/14/16 15:55 Room Air 08/14/16 14:55 37.0 100 16 123/77 95 Room Air 08/14/16 14:00 88 16 122/81 95 Room Air 08/14/16 13:03 88 16 121/72 95 Room Air 08/14/16 12:15 36.6 92 16 123/83 98 Room Air 08/14/16 11:45 Room Air 08/14/16 11:45 36.6 91 16 129/84 95 Room Air 08/14/16 11:45 95 Room Air 08/14/16 11:35 98 20 130/77 99 Nasal Cannula 2 08/14/16 11:25 36.6 100 12 124/73 99 Nasal Cannula 2 08/14/16 11:15 94 19 121/85 99 Nasal Cannula 2 08/14/16 11:05 79 21 128/83 100 Mask 10 08/14/16 10:55 79 17 127/81 100 Mask 10 08/14/16 10:45 36.4 81 25 136/75 100 Mask 10 08/14/16 07:08 36.5 92 16 119/69 100 Room Air General Appearance: no apparent distress Respiratory/Chest: no respiratory distress Abdomen: soft (incisional tenderness) Incision(s): intact Laboratory Results: Results Past 24 Hours Test 08/14/16 07:21 08/14/16 10:56 08/14/16 16:10 08/15/16 04:30 Range/Units Bedside Urine Test NEG NEG White Blood Count 9.82 11.63 4.8-10.8 K/uL Red Blood Count 4.28 4.02 4.2-5.4 M/uL Hemoglobin 13.1 13.4 12.0 12.0-16.0 g/dL Hematocrit 38.9 39.8 36.5 37-47 % Mean Corpuscular Volume 90.9 90.8 80-100 fL Mean Corpuscular Hemoglobin 30.6 29.9 25-34 pg Mean Corpuscular Hemoglobin Concent 33.7 32.9 32-36 g/dl RDW Standard Deviation 48.1 49.0 36.4-46.3 fL RDW Coefficient of Variation 14.5 14.6 11.5-14.5 % Platelet Count 171 200 130-400 K/uL Mean Platelet Volume 10.5 11.1 7.4-10.4 fL Prothrombin Time 11.6 9.0-12.0 SECONDS Prothromb Time International Ratio 1.1 0.9-1.1 Activated Partial Thromboplast Time 25.9 21.0-31.0 SECONDS Partial Thromboplastin Ratio 1.0 Sodium Level 143 136-145 mmol/L Potassium Level 3.9 3.5-5.1 mmol/L Chloride Level 110 98-107 mmol/L Carbon Dioxide Level 28 21-32 mmol/L Anion Gap 5.0 3-11 mmol/L Blood Urea Nitrogen 7 7-18 mg/dl Creatinine 0.65 0.60-1.20 mg/dl Est Creatinine Clear Calc Drug Dose 103.8 ml/min Estimated GFR () 142.0 Estimated GFR (Non- 122.5 BUN/Creatinine Ratio 10.5 10-20 Random Glucose 116 70-99 mg/dl Calcium Level 7.9 8.5-10.1 mg/dl Assessment & Plan 08/15/16- s/p laparoscopy with open appendectomy- significant adhesions H/H stable- cont IV atbx, adv activity- probable d/c home tomorrow
[2016-08-15 07:35] VITALS: BP 91/52; PULSE 83; TEMP 37.1; O2SAT 97
[2016-08-15] MEDS: HEPARIN SOD 5000 UNIT/0.5 ML CARP SQ SCH ×2 (08:00→19:50)
--- NOTE | 2016-08-15 08:30 | Anesthesiology Progress Note ---
Anesthesia Post Op Note Date & Time August 15, 2016 at 08:30 Vital Signs Pain Intensity: 0.0 Vital Signs Past 12 Hours Date Time Temp Pulse Resp B/P Pulse Ox O2 Delivery O2 Flow Rate FiO2 08/15/16 08:15 Room Air 08/15/16 02:52 37.1 73 14 92/58 95 Room Air 08/14/16 23:30 Room Air 08/14/16 23:25 36.9 80 14 100/61 96 Room Air Notes Mental Status: alert / awake / arousable, participated in evaluation
[2016-08-15] MEDS: LACTOBACILLUS ACIDOPHILUS (FLORANEX) TAB PO SCH (09:05)
[2016-08-15] MEDS: HYDROCODONE/ACETAMOPHEN 5/325MG TAB PO PRN ×2 (11:44→18:09)
[2016-08-15 12:25] VITALS: BP 122/80; PULSE 65; TEMP 36.4; O2SAT 100
[2016-08-15 15:10] VITALS: BP 107/66; PULSE 87; TEMP 37; O2SAT 96
[2016-08-15] MEDS: AMOXICILLIN/CLAVULANATE TAB 875 MG TAB PO SCH (18:00)
[2016-08-15] MEDS: CITALOPRAM 20 MG TAB PO SCH (21:00)
[2016-08-15 23:25] VITALS: BP 115/78; PULSE 65; TEMP 36.9; O2SAT 98
[2016-08-16] MEDS: KETOROLAC TROMETHAMINE 30 MG/ML VIAL IV. SCH ×2 (05:45)
[2016-08-16] MEDS: HYDROCODONE/ACETAMOPHEN 5/325MG TAB PO PRN (06:00)
--- NOTE | 2016-08-16 06:07 | Discharge Instructions ---
Discharge Instructions Date of Service August 16, 2016. Admission Reason for Admission: Appendicitis Discharge Discharge Diagnosis / Problem: appendicitis Discharge Goals Goal(s): Decrease discomfort, Improve function, Improve disease control Activity Recommendations Activity Limitations: as noted below Lifting Limitations: no more than 10 pounds Exercise/Sports Limitations: until after follow-up appointment May Resume Sexual Activity: when tolerated Shower/Bathe: no limitations (may shower, do not soak in bathtub) Driving or Machine Use: resume 1 day after discharge SPECIAL CARE INSTRUCTIONS: * Cover incisions and change daily for comfort/drainage. * Leave steri strips in place * May use ibuprofen for pain as tolerated. * Expect some swelling and bruising. Call your doctor if: * Temperature above 101 degrees * Pain not relieved by pain medicine ordered * There is increased drainage or redness from any incision * You have any unanswered questions or concerns [phone]. FOLLOW UP VISIT: If not already scheduled, please call the office for a follow-up visit. for 2 weeks- checkup- no sutures to remove OFFICE PHONE NUMBER: Dr. Shah Office . Current Hospital Diet Patient's current hospital diet: Regular Diet Discharge Diet Recommended Diet: Regular Diet Procedures Procedures Performed: Laproscopic Appendectomy converted to open appendectomy Pending Studies Studies pending at discharge: no Laboratory Results Hemoglobin A1c Test 06/17/16 11:37 Range/Units Estimated Average Glucose 97 mg/dl Hemoglobin A1c 5.0 4.5-5.6 % Medical Emergencies . Who to Call and When: Medical Emergencies: If at any time you feel your situation is an emergency, please call 911 immediately. . Non-Emergent Contact Non-Emergency issues call your: Primary Care Provider, Surgeon . "Provider Documentation" section prepared by Chandana Shah. . VTE Core Measure Inpt VTE Proph given/why not?: Unfractionated heparin SQ, SCD's
[2016-08-16 06:54] VITALS: BP 109/73; PULSE 65; TEMP 36.9; O2SAT 98
[2016-08-16] MEDS: HEPARIN SOD 5000 UNIT/0.5 ML CARP SQ SCH (07:46)
[2016-08-16] MEDS: LACTOBACILLUS ACIDOPHILUS (FLORANEX) TAB PO SCH (09:15)
[2016-08-16] MEDS: AMOXICILLIN/CLAVULANATE TAB 875 MG TAB PO SCH (09:16)
[2016-08-16 10:53] VITALS: BP 109/73; PULSE 65; TEMP 36.9; O2SAT 98
--- NOTE | 2016-08-16 11:10 | DISCHARGE SUMMARY ---
PRINCIPAL DIAGNOSIS: Appendicitis. PROCEDURES: The patient underwent laparoscopic and open appendectomy. HISTORY OF PRESENT ILLNESS: The patient is a 26-year-old female who had previously been admitted to the hospital on 06/25/2016 with acute perforated appendicitis with phlegmon. She was treated with antibiotics over this past time period with good results and was scheduled for an interval appendectomy, which was performed on 08/14/2016. HOSPITAL COURSE: The patient was brought into the hospital on 08/14/2016. She was taken to the operating room. Initially, we began with laparoscopy, but her appendix was extremely adherent to the retroperitoneum retrocecal in position and I converted to an open procedure. She has done very well over the past 2 days and is felt stable for discharge home today to be followed in the surgical clinic within 1-2 weeks.
== END 2016-08-16 11:25 | disposition home or self-care (01) | DRG 340 ==
LOC: ENRESERVTM → ENRESERVDT → C.ACU 06:51 → C.MSW 10:39
PROVIDERS: ADMIT Surgery; ATTEND Surgery
PROC: 0DTJ0ZZ Resection of Appendix, Open Approach (ICD-10-PCS; principal; 2016-08-14 08:40)
PROC: 0DJD4ZZ Inspection of Lower Intestinal Tract, Percutaneous Endoscopic Approach (ICD-10-PCS; principal; 2016-08-14 08:40)
DX: K35.3 Acute appendicitis with localized peritonitis (principal); G43.109 Migraine with aura, not intractable, without status migrainosus; F32.9 Major depressive disorder, single episode, unspecified; Z87.440 Personal history of urinary (tract) infections; Z83.3 Family history of diabetes mellitus; Z82.49 Family history of ischemic heart disease and other diseases of the circulatory system; Z82.3 Family history of stroke

== ENCOUNTER → 2017-06-19 | Outpatient (CLI) | payer OTHER ==
[~2017-06-19] MED LIST changes: -LACTATED RINGER'S 1000ML 1,000 ML IV SCH; -PIPERACILL/TAZOBAC IV 3.375 GM in DEXTROSE 5% 100ML IV SCH
== END | disposition home or self-care (01) ==
LOC: C.PAPS 09:35
PROVIDERS: ATTEND Obstetrics & Gynecology
DX: Z12.4 Encounter for screening for malignant neoplasm of cervix (principal)